=== PATIENT | male | born 1955 | race Caucasian/White ===

== ENCOUNTER 2018-12-06 19:30 | Inpatient (IN) | payer MEDICARE, OTHER ==
--- NOTE | 2018-12-06 19:46 | ED PDOC ---
Arrival/HPI - General Chief Complaint: Weakness/Neurological Deficit Time Seen by Provider: 12/06/18 19:37 Historian: Patient, Spouse - History of Present Illness Narrative History of Present Illness (Text): 12/06/18 19:58 63 year old male, with past medical history of CVA, hypertension, and cerebral hemorrhage s/p fall 06/08 presents to emergency department brought in by ambulance following apparent seizure episode according to . states that patient returned home and stated he wasn't feeling well. She reports patient was shaking, drooling,unresponsive.Following this patient was unable to move his left arm/leg, and had some slurred speech. Patient currently presents with left- sided paralysis and is able to speak slowly with difficulty answering questions. Time/Duration: Prior to Arrival Symptom Onset: Gradual Symptom Course: Unchanged Activities at Onset: Light Context: Home Past Medical History - Provider Review Nursing Documentation Reviewed: Yes - Infectious Disease Hx of Infectious Diseases: None - Cardiac Hx Cardiac Disorders: Yes Hx DC: Yes (x3) - Pulmonary Hx Respiratory Disorders: No - Neurological Hx Neurological Disorder: Yes HX Cerebrovascular Accident: Yes - HEENT Hx HEENT Disorder: No - Renal Hx Renal Disorder: No - Endocrine/Metabolic Hx Endocrine Disorders: No - Hematological/Oncological Hx Blood Disorders: No - Integumentary Hx Dermatological Disorder: No - Musculoskeletal/Rheumatological Hx Musculoskeletal Disorders: No - Gastrointestinal Hx Gastrointestinal Disorders: No - Genitourinary/Gynecological Hx Genitourinary Disorders: No - Psychiatric Hx Psychophysiologic Disorder: No Hx Substance Use: No - Surgical History Hx Cardiac Catheterization: Yes (stents) - Anesthesia Hx Anesthesia: Yes Hx Anesthesia Reactions: No Hx Malignant Hyperthermia: No Family/Social History - Physician Review Nursing Documentation Reviewed: Yes Family/Social History: Unknown Family HX Smoking Status: Never Smoked Hx Alcohol Use: No Hx Substance Use: No Allergies/Home Meds Allergies/Adverse Reactions: Allergies No Known Allergies Allergy (Verified 12/06/18 19:36) Home Medications: Home Meds Medication Instructions Recorded Confirmed Aspirin [Aspirin Chewable] 81 mg PO DAILY 12/06/18 12/06/18 Atorvastatin [Lipitor] 80 mg PO DAILY 12/06/18 12/06/18 Clopidogrel Bisulfate [Plavix] 75 mg PO DAILY 12/06/18 12/06/18 Lisinopril [Zestril] 2.5 mg PO DAILY 12/06/18 12/06/18 Review of Systems - Review of Systems Systems not reviewed;Unavailable: Acuity of Condition Physical Exam Vital Signs Reviewed: Yes Vital Signs Temp Pulse Resp BP Pulse Ox 12/06/18 19:37 93 H 16 133/68 96 12/06/18 19:30 98.4 F 88 17 133/68 98 Temperature: Afebrile Blood Pressure: Normal Pulse: Regular Respiratory Rate: Normal Appearance: Positive for: Well-Appearing, Non-Toxic, Comfortable Pain Distress: None Mental Status: Positive for: Alert and Oriented X 3, other (speaks slowly, difficulty answering questions) - Systems Exam Head: Present: Atraumatic, Normocephalic Pupils: Present: PERRL Extroacular Muscles: Present: EOMI Conjunctiva: Present: Normal Ears: Present: NORMAL TM Mouth: Present: Moist Mucous Membranes Pharnyx: Present: Normal Neck: Present: Normal Range of Motion. No: Meningeal Signs Respiratory/Chest: Present: Clear to Auscultation, Good Air Exchange. No: Respi ratory Distress, Accessory Muscle Use Cardiovascular: Present: Regular Rate and Rhythm, Normal S1, S2. No: Murmurs Abdomen: No: Tenderness, Distention, Peritoneal Signs Back: Present: Normal Inspection Upper Extremity: Present: Normal Inspection, NORMAL PULSES. No: Cyanosis, Edema Lower Extremity: Present: Normal Inspection, NORMAL PULSES. No: Edema Neurological: Present: Other (Mild left facial assymetry/left upper/left lower paralysis) Skin: Present: Warm, Dry, Normal Color. No: Rashes Medical Decision Making ED Course and Treatment: 12/06/18 19:52 Impression: 63 year old male presents to emergency department following seizure episode PRACTICE PHYSICIAN. Plan: -- Labs -- CT Head -- EKG -- Chest X-ray -- Keppra -- IV Fluids -- Reassess and disposition Prior Visits: Notes and results from previous visits were reviewed. Progress Notes: 12/06/18 20:17 Patient currently having recurrent seizure. 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 Case was discussed with Dr. Alegria. States patient is not a candidate for TPA given past medical history of prior CVA and cerebral bleed and symptoms c/w Byron's paralysis.He recommends patient be loaded with 1500 mg of keppra. Ativan had been ordered. 12/06/18 20:27 EKG: Ordered, reviewed, and independently interpreted the EKG. Rate : 85 BPM Rhythm : NSR Interpretation : Inferior infarct, no acute changes 12/06/18 20:32 Reviewed radiology, Chest X-ray shows no acute processes. CT Head: BRAIN: Chronic periventricular and subcortical microvascular disease is seen. Encephalomalacia involving old parietal lobe, compatible with an old infarct. No acute intracranial pathology. VENTRICLES: There is generalized parenchymal atrophy noted as demonstrated by symmetrical dilatation of ventricles and sulci. ORBITS: The orbits are unremarkable. SINUSES AND MASTOIDS: The paranasal sinuses and mastoid air cells are clear. BONES: No fracture. SOFT TISSUES: Unremarkable. IMPRESSION: 1. There is generalized parenchymal atrophy. 2. Chronic periventricular and subcortical microvascular disease is seen. 3. Encephalomalacia involving old parietal lobe, compatible with an old infarct. 4. No acute intracranial pathology. Electronically signed on December 06, 2018 7:57:04 PM EDT by: Aaron Jasso M.D., M.B.A., Certified By [employer] Trained MRI and CT Specialist 12/06/18 21:[address] Steele, who is aware and agrees with plan. Accepts pt in to her service. Requests ICU consult and Dr. Callahan on consult. Rent Collector paged. 12/06/18 22:[address] Chaney, merchandise team manager, present in ED to evaluate pt. Pt to be admitted to the ICU for new onset recurrent seizures and Todds paralysis under Dr. Steele's service. residential roofer notified. - Critical Care Critical Care Minutes: 30 minutes - Lab Interpretations I have reviewed the lab results: Yes - RAD Interpretation Radiology Orders: 12/06/18 19:37 HEAD W/O (CODE STROKE) [CT] Stat CHEST PORTABLE [RAD] Stat [employer]: ED Physician, Radiologist - EKG Interpretation Interpreted by ED Physician: Yes Type: 12 lead EKG - Medication Orders Current Medication Orders: Sodium Chloride (Sodium Chloride 0.9%) 1,000 mls @ 100 mls/hr IV .Q10H [facility] NIHSS Scale ([place]) Time Performed: 19:35 - How Severe is the Stoke Baseline Level of Consciousness: 0=Alert LOC to Questions: 0=Both comments correct LOC to commands: 0=Obeys both correctly Best Gaze: 0=Normal Visual: 0=No visual loss Facial: 1=Minor asymmetry Motor Arm - Left: 4=No movement Motor Arm - Right: 0=No drift Motor Leg - Left: 4=No movement Motor Leg - Right: 0=No drift Limb Ataxia: 0=Absent Sensory: 0=Normal Best Language: 0=No aphasia Dysarthia: 1=Mild to moderate slurring Extinction & Inattention (Neglect): 0=Normal, no object Score: 10 Risk Level: Mod Stroke Risk NIHSS Scale([place]) 2 Time Performed: 20:05 - How Severe is the Stoke Baseline Level of Consciousness: 0=Alert LOC to Questions: 0=Both comments correct LOC to commands: 0=Obeys both correctly Best Gaze: 0=Normal Visual: 0=No visual loss Facial: 0=Normal Motor Arm - Left: 4=No movement Motor Arm - Right: 0=No drift Motor Leg - Left: 4=No movement Motor Leg - Right: 0=No drift Limb Ataxia: 0=Absent Sensory: 0=Normal Best Language: 0=No aphasia Dysarthia: 0=Normal articulation Extinction & Inattention (Neglect): 0=Normal, no object Score: 8 Risk Level: Mod Stroke Risk rTPA Inclusion/Exclusion - Refusal of Treatment Patient Refused Treatment: No - Inclusion Criteria for Altepase All of the below criteria for inclusion were reviewed: Yes Patient is 18 years or Older: Yes The Clinical Diagnosis of Ischemic Stroke That is Causing a Potentially Disabling Neurological Deficit: No Time of Onset is Well Established to be Less Than 270 Minute Before Treatment Would Begin: Yes Risk/Benefit Discussed With Patient/Family Member Present: Yes - Exclusion Criteria for Altepase Current Intracranial Hemorrhage: No Subarachnoid hemorrhage: No Active Internal Bleeding: No Recent (within 3 months) Intracranial or Intraspinal Surgery: No Presence of intracranial conditions that may increase the risk of bleeding: Other (previous CVA/Cerebral Bleed) Current Severe Uncontrolled Hypertension: No - Warning to TPA With Conditions Following Conditions Weighed Against Anticipated Benefit: Yes Condition: Recent intracranial hemorrhage - Scribe Statement The provider has reviewed the documentation as recorded by the Scribe Vincent Jones All medical record entries made by the Scribe were at my direction and personally dictated by me. I have reviewed the chart and agree that the record accurately reflects my personal performance of the history, physical exam, medical decision making, and the department course for this patient. I have also personally directed, reviewed, and agree with the discharge instructions and disposition. Disposition/Present on Arrival - Present on Arrival Any Indicators Present on Arrival: No History of DVT/PE: No History of Uncontrolled Diabetes: No Urinary Catheter: No History of Decub. Ulcer: No History Surgical Site Infection Following: None - Disposition Have Diagnosis and Disposition been Completed?: Yes Diagnosis: New onset seizure, Recurrent seizures, Byron's paralysis (postepileptic) Disposition: HOSPITALIZED Disposition Time: 21:55 Patient Plan: ICU Condition: GUARDED
[2018-12-06] MEDS: Sodium Chloride 0.9% 1,000 ML IV SCH (19:56)
[2018-12-06 20:01] LABS: BASO # 0.04 K/mm3 (0.0-2.0); BASO % 0.7 % (0.0-3.0); EOS # 0.2 (0.0-0.7); EOS % 3.4 % (1.5-5.0); HEMOGLOBIN 14.6 g/dL (14.0-18.0); LYMPH # 4.1 (1.2-3.4); LYMPH % 68.2 % (22.0-35.0); MEAN CELL VOLUME 91.2 fl (80.0-105.0); MEAN CORPUSCULAR HEMOGLOBIN 29.1 pg (25.0-35.0); MEAN CORPUSCULAR HGB CONC 31.9 g/dl (31.0-37.0); MEAN PLATELET VOLUME 10.7 fl (7.0-11.0); MONO # 0.5 (0.1-0.6); MONO % 8.6 % (1.0-6.0); RBC 5.01 10^6/uL (3.5-6.1); RED CELL DISTRIBUTION WIDTH 13.6 % (11.5-14.5); WHITE BLOOD COUNT 5.9 10^3/uL (4.5-11.0)
[2018-12-06 20:07] LABS: INR 0.97; PARTIAL THROMBOPLASTIN TIME 26.4 Seconds (26.9-38.3); PROTHROMBIN TIME 10.8 SECONDS (9.4-12.5)
[2018-12-06 20:09] LABS: BLOOD UREA NITROGEN 21 mg/dL (7-21); CALCIUM 9.5 mg/dL (8.4-10.5); GFR NON-AFRICAN AMERICAN > 60; HDL CHOLESTEROL 51 mg/dL (29-60)
[2018-12-06 20:20] LABS: LDL CHOLESTEROL 111 mg/dL (0-129)
[2018-12-06] MEDS ORDERED: levETIRAcetam 1,500 MG in Sodium Chloride 0.9% 100 ML IVPB ONE (20:21)
[2018-12-06 20:25] LABS: ALB/GLOB RATIO 1.3 (1.1-1.8); ALT/SGPT 38 U/L (7-56); AST/SGOT 53 U/L (17-59); TROPONIN I < 0.01 ng/mL
[2018-12-07] MEDS: Sodium Chloride 0.9% 1,000 ML IV SCH ×2 (01:44→11:56)
[2018-12-07 03:32] VITALS: BMI 30.6
[2018-12-07] MEDS ORDERED: Pneumococcal 23-Valent Vaccine IM ONE (03:32)
--- NOTE | 2018-12-07 04:47 | CP.PCM.CON ---
<NathaliaYung - Last Filed: 12/07/18 04:37> History of Present Illness - History of Present Illness History of Present Illness: ICU consult note: Nathalia PGY - 2 Reason for consult: AMS, Byron's paralysis Consult requested by: Dr. Steele 63 M with pertinent medical history of CVA, HN, and cerebral hemorrhage s//p fall in 2018 preset[place] [facility] [place] 12[place] s/p seizure episode according to . Hx obtained from chart review because unavailable at time of interview and patient not verbally responsive. Apparently following this seizure like activity, patient was unable to move his left extremities; also had some slurred speech. Upon my interview, patient is moving extremities to pain but is otherwise too drowsy to respond to questions. Review of systems: 12 point ROS elicted but unobtained / patient's mental status Surgical Hx: Elicited but not obtained Medical Hx: Elicited but not obtained Allergies: Elicited but not obtained Social Hx: Elicited but not obtained Home Meds: Elicited but not obtained Family Hx: Elicited but not obtained Past Patient History - Infectious Disease Hx of Infectious Diseases: None - Past Social History Smoking Status: Never Smoked - CARDIAC Hx Cardiac Disorders: Yes - PULMONARY Hx Respiratory Disorders: No - NEUROLOGICAL Hx Neurological Disorder: Yes HX Cerebrovascular Accident: Yes (Cerebral Hemorrhage s/p fall.) - HEENT Hx HEENT Problems: No - RENAL Hx Chronic Kidney Disease: No - ENDOCRINE/METABOLIC Hx Endocrine Disorders: No - HEMATOLOGICAL/ONCOLOGICAL Hx Blood Disorders: No - INTEGUMENTARY Hx Dermatological Problems: No - MUSCULOSKELETAL/RHEUMATOLOGICAL Hx Falls: Yes - GASTROINTESTINAL Hx Gastrointestinal Disorders: No - GENITOURINARY/GYNECOLOGICAL Hx Genitourinary Disorders: No - PSYCHIATRIC Hx Substance Use: No (Denied by pt.) - SURGICAL HISTORY Hx Surgeries: No Hx Cardiac Catheterization: Yes (Cardiac Stents) - ANESTHESIA Hx Anesthesia: Yes Hx Anesthesia Reactions: No Hx Malignant Hyperthermia: No Meds Allergies/Adverse Reactions: Allergies Allergy/AdvReac Type Severity Reaction Status Date / Time No Known Allergies Allergy Verified 12/06/18 19:36 - Medications Medications: Current Medications Aspirin (Aspirin Chewable) 81 mg PO DAILY [facility] Atorvastatin Calcium (Lipitor) 80 mg PO DAILY [facility] Clopidogrel Bisulfate (Plavix) 75 mg PO DAILY [facility] Sodium Chloride (Sodium Chloride 0.9%) 1,000 mls @ 100 mls/hr IV .Q10H [facility] Last Admin: 12/07/18 01:44 Dose: 100 mls/hr Levetiracetam 750 mg/ Sodium (Chloride) 107.5 mls @ 215 mls/hr IVPB Q12 [facility] Lisinopril (Zestril) 2.5 mg PO DAILY [facility] Lorazepam (Ativan) 1 mg IVP Q6H PRN; Protocol PRN Reason: Seizure activity Physical Exam - Constitutional Appears: Well - Head Exam Head Exam: ATRAUMATIC, NORMAL INSPECTION, NORMOCEPHALIC - Eye Exam Eye Exam: EOMI, Normal appearance, PERRL Pupil Exam: NORMAL ACCOMODATION, PERRL - ENT Exam ENT Exam: Mucous Membranes Moist, Normal Exam - Neck Exam Neck exam: Positive for: Normal Inspection - Respiratory Exam Respiratory Exam: Clear to Auscultation Bilateral, NORMAL BREATHING PATTERN - Cardiovascular Exam Cardiovascular Exam: REGULAR RHYTHM - GI/Abdominal Exam GI & Abdominal Exam: Normal Bowel Sounds, Soft. absent: Tenderness - Extremities Exam Extremities exam: Positive for: normal inspection - Back Exam Back exam: NORMAL INSPECTION - Neurological Exam Neurological exam: Alert, CN II-XII Intact, Normal Gait, Oriented x3, Reflexes Normal - Psychiatric Exam Psychiatric exam: Normal Affect, Normal Mood - Skin Skin Exam: Dry, Intact, Normal Color, Warm Results - Vital Signs Recent Vital Signs: Last Vital Signs Temp 97.5 F L 12/07/18 00:47 Pulse 60 12/07/18 03:37 Resp 16 12/07/18 03:30 BP 96/67 L 12/07/18 03:01 Pulse Ox 98 12/07/18 03:30 - Labs Result Diagrams: 12/06/18 19:35 12/06/18 19:35 Labs: Laboratory Results - last 24 hr 12/06/18 12/06/18 12/06/18 19:35 19:35 19:35 WBC 5.9 RBC 5.01 Hgb 14.6 Hct 45.7 MCV 91.2 MCH 29.1 MCHC 31.9 RDW 13.6 Plt Count 276 MPV 10.7 Neut % (Auto) 19.1 L Lymph % (Auto) 68.2 H Woods % (Auto) 8.6 H Eos % (Auto) 3.4 Baso % (Auto) 0.7 Lymph # (Auto) 4.1 H Woods # (Auto) 0.5 Eos # (Auto) 0.2 Baso # (Auto) 0.04 Absolute Neuts (auto) 1.14 L PT 10.8 INR 0.97 APTT 26.4 L Sodium 139 Potassium 4.4 Chloride 103 Carbon Dioxide 11 L Anion Gap 30 H BUN 21 Creatinine 0.9 Est GFR ( Amer) > 60 Est GFR (Non-Af Amer) > 60 Random Glucose 112 H Calcium 9.5 Total Bilirubin 0.9 AST 53 ALT 38 Alkaline Phosphatase 57 Troponin I < 0.01 Total Protein 8.7 H Albumin 5.0 H Globulin 3.7 Albumin/Globulin Ratio 1.3 Triglycerides 244 H Cholesterol 200 LDL Cholesterol Direct 111 HDL Cholesterol 51 Blood Type Blood Type Confirm Antibody Screen BBK History Checked 12/06/18 12/06/18 19:41 21:09 WBC RBC Hgb Hct MCV MCH MCHC RDW Plt Count MPV Neut % (Auto) Lymph % (Auto) Woods % (Auto) Eos % (Auto) Baso % (Auto) Lymph # (Auto) Woods # (Auto) Eos # (Auto) Baso # (Auto) Absolute Neuts (auto) PT INR APTT Sodium Potassium Chloride Carbon Dioxide Anion Gap BUN Creatinine Est GFR ( Amer) Est GFR (Non-Af Amer) Random Glucose Calcium Total Bilirubin AST ALT Alkaline Phosphatase Troponin I Total Protein Albumin Globulin Albumin/Globulin Ratio Triglycerides Cholesterol LDL Cholesterol Direct HDL Cholesterol Blood Type A POSITIVE Blood Type Confirm A POSITIVE Antibody Screen Negative BBK History Checked No verified bt Assessment & Plan - Assessment and Plan (Free Text) Assessment: 63 M with pertinent medical hx of past cva, htn, and cerebral hemorrhage presenting with apparent new-onset seizures and byron's paralysis. Patient not a candidate for tPA as sx not in line with cva and patient has previous history of hemorrhage. Patient is currently not able o respond to questions and therefore does warrant ICU admission. Plan - Admit to MICU for observation - Neurochecks; Aspiration precautions; HOB >30 degrees - Vitals checks - Continuous EEG - Orders per Dr. Steele - Neuro consult: Dr. Callahan <Opal Chaney - Last Filed: 12/07/18 19:21> Meds - Medications Medications: Current Medications Aspirin (Aspirin Chewable) 81 mg PO DAILY [facility] Last Admin: 12/07/18 17:05 Dose: 81 mg Atorvastatin Calcium (Lipitor) 80 mg PO DAILY [facility] Last Admin: 12/07/18 17:05 Dose: 80 mg Clopidogrel Bisulfate (Plavix) 75 mg PO DAILY [facility] Last Admin: 12/07/18 17:05 Dose: 75 mg Escitalopram Oxalate (Lexapro) 10 mg PO HS [facility] Sodium Chloride (Sodium Chloride 0.9%) 1,000 mls @ 100 mls/hr IV .Q10H [facility] Last Admin: 12/07/18 11:56 Dose: 100 mls/hr Levetiracetam (Keppra 500mg Ivpb) 500 mg in 100 mls @ 240 mls/hr IVPB Q12 [facility] Lisinopril (Zestril) 2.5 mg PO DAILY [facility] Last Admin: 12/07/18 17:05 Dose: 2.5 mg Lorazepam (Ativan) 1 mg IVP Q6H PRN; Protocol PRN Reason: Seizure activity Last Admin: 12/07/18 17:02 Dose: 1 mg Pantoprazole Sodium (Protonix Ec Tab) 40 mg PO 0600 [facility] Results - Vital Signs Recent Vital Signs: Last Vital Signs Temp 97.9 F 12/07/18 16:00 Pulse 59 L 12/07/18 17:05 Resp 14 12/07/18 12:00 BP 131/75 12/07/18 17:05 Pulse Ox 97 12/07/18 12:00 - Labs Result Diagrams: 12/06/18 19:35 12/07/18 05:00 Labs: Laboratory Results - last 24 hr 12/06/18 12/06/18 12/06/18 19:35 19:35 19:35 WBC 5.9 RBC 5.01 Hgb 14.6 Hct 45.7 MCV 91.2 MCH 29.1 MCHC 31.9 RDW 13.6 Plt Count 276 MPV 10.7 Neut % (Auto) 19.1 L Lymph % (Auto) 68.2 H Woods % (Auto) 8.6 H Eos % (Auto) 3.4 Baso % (Auto) 0.7 Lymph # (Auto) 4.1 H Woods # (Auto) 0.5 Eos # (Auto) 0.2 Baso # (Auto) 0.04 Absolute Neuts (auto) 1.14 L PT 10.8 INR 0.97 APTT 26.4 L Sodium 139 Potassium 4.4 Chloride 103 Carbon Dioxide 11 L Anion Gap 30 H BUN 21 Creatinine 0.9 Est GFR ( Amer) > 60 Est GFR (Non-Af Amer) > 60 POC Glucose (mg/dL) Random Glucose 112 H Hemoglobin A1c Calcium 9.5 Total Bilirubin 0.9 AST 53 ALT 38 Alkaline Phosphatase 57 Troponin I < 0.01 Total Protein 8.7 H Albumin 5.0 H Globulin 3.7 Albumin/Globulin Ratio 1.3 Triglycerides 244 H Cholesterol 200 LDL Cholesterol Direct 111 HDL Cholesterol 51 Free T4 TSH 3rd Generation Blood Type Blood Type Confirm Antibody Screen BBK History Checked 12/06/18 12/06/18 12/06/18 19:35 19:41 21:09 WBC RBC Hgb Hct MCV MCH MCHC RDW Plt Count MPV Neut % (Auto) Lymph % (Auto) Woods % (Auto) Eos % (Auto) Baso % (Auto) Lymph # (Auto) Woods # (Auto) Eos # (Auto) Baso # (Auto) Absolute Neuts (auto) PT INR APTT Sodium Potassium Chloride Carbon Dioxide Anion Gap BUN Creatinine Est GFR ( Amer) Est GFR (Non-Af Amer) POC Glucose (mg/dL) Random Glucose Hemoglobin A1c 5.9 Calcium Total Bilirubin AST ALT Alkaline Phosphatase Troponin I Total Protein Albumin Globulin Albumin/Globulin Ratio Triglycerides Cholesterol LDL Cholesterol Direct HDL Cholesterol Free T4 TSH 3rd Generation Blood Type A POSITIVE Blood Type Confirm A POSITIVE Antibody Screen Negative BBK History Checked No verified bt 12/07/18 12/07/18 12/07/18 05:00 05:00 05:00 WBC RBC Hgb Hct MCV MCH MCHC RDW Plt Count MPV Neut % (Auto) Lymph % (Auto) Woods % (Auto) Eos % (Auto) Baso % (Auto) Lymph # (Auto) Woods # (Auto) Eos # (Auto) Baso # (Auto) Absolute Neuts (auto) PT INR APTT Sodium 139 Potassium 4.0 Chloride 106 Carbon Dioxide 23 Anion Gap 14 BUN 19 Creatinine 0.7 L Est GFR ( Amer) > 60 Est GFR (Non-Af Amer) > 60 POC Glucose (mg/dL) Random Glucose 101 Hemoglobin A1c 5.9 Calcium 8.6 Total Bilirubin 0.6 AST 50 ALT 38 Alkaline Phosphatase 58 Troponin I Total Protein 6.8 Albumin 3.8 Globulin 3.0 Albumin/Globulin Ratio 1.3 Triglycerides 72 Cholesterol 163 LDL Cholesterol Direct 98 HDL Cholesterol 45 Free T4 1.24 TSH 3rd Generation 0.25 L Blood Type Blood Type Confirm Antibody Screen BBK History Checked 12/07/18 12/07/18 11:50 18:01 WBC RBC Hgb Hct MCV MCH MCHC RDW Plt Count MPV Neut % (Auto) Lymph % (Auto) Woods % (Auto) Eos % (Auto) Baso % (Auto) Lymph # (Auto) Woods # (Auto) Eos # (Auto) Baso # (Auto) Absolute Neuts (auto) PT INR APTT Sodium Potassium Chloride Carbon Dioxide Anion Gap BUN Creatinine Est GFR ( Amer) Est GFR (Non-Af Amer) POC Glucose (mg/dL) 94 101 Random Glucose Hemoglobin A1c Calcium Total Bilirubin AST ALT Alkaline Phosphatase Troponin I Total Protein Albumin Globulin Albumin/Globulin Ratio Triglycerides Cholesterol LDL Cholesterol Direct HDL Cholesterol Free T4 TSH 3rd Generation Blood Type Blood Type Confirm Antibody Screen BBK History Checked Attending/Attestation - Attestation I have personally seen and examined this patient.: Yes I have fully participated in the care of the patient.: Yes I have reviewed all pertinent clinical information: Yes Notes (Text): 12/07/18 19:20 seen and examined. Discussed with resident. A&P as above.
[2018-12-07 05:58] LABS: LDL CHOLESTEROL 98 mg/dL (0-129)
[2018-12-07 06:02] LABS: FREE T4 1.24 ng/dL (0.78-2.19)
[2018-12-07 06:11] LABS: ALB/GLOB RATIO 1.3 (1.1-1.8); ALBUMIN 3.8 g/dL (3.0-4.8); ALT/SGPT 38 U/L (7-56); AST/SGOT 50 U/L (17-59); BLOOD UREA NITROGEN 19 mg/dL (7-21); CALCIUM 8.6 mg/dL (8.4-10.5); GFR NON-AFRICAN AMERICAN > 60; HDL CHOLESTEROL 45 mg/dL (29-60)
--- NOTE | 2018-12-07 08:33 | CT ---
Date of service: 12/06/2018 PROCEDURE: CT HEAD WITHOUT CONTRAST. HISTORY: Code Stroke COMPARISON: None available. TECHNIQUE: Axial computed tomography images were obtained through the head/brain without intravenous contrast. Radiation dose: Total exam DLP = 1927.82 mGy-cm. This CT exam was performed using one or more of the following dose reduction techniques: Automated exposure control, adjustment of the mA and/or kV according to patient size, and/or use of iterative reconstruction technique. FINDINGS: HEMORRHAGE: No intracranial hemorrhage. BRAIN: No mass effect or edema. Severe chronic encephalomalacia in the right parietal lobe. Chronic microvascular changes in the periventricular white matter. Mild atrophy. VENTRICLES: Unremarkable. No hydrocephalus. CALVARIUM: Unremarkable. PARANASAL SINUSES: Unremarkable as visualized. No significant inflammatory changes. MASTOID AIR CELLS: Unremarkable as visualized. No inflammatory changes. OTHER FINDINGS: The report concurs with the preliminary [facility] report IMPRESSION: No acute intracranial finding
--- NOTE | 2018-12-07 09:40 | CP.PCM.CON ---
History of Present Illness - History of Present Illness History of Present Illness: Neurology Consultation Note: Consult requested by Dr. Steele Mr. Vaughn is a 63-year-old man with a past medical history of previous right parietal lobe stroke who was witnessed having a generalized tonic-clonic seizure at home, and subsequently had left side weakness, brought to the ED, where he had another seizure, given Ativan and loaded with Keppra. Review of Systems - Review of Systems Systems not reviewed;Unavailable: Altered Mental Status Past Patient History - Infectious Disease Hx of Infectious Diseases: None - Past Social History Smoking Status: Never Smoked - CARDIAC Hx Cardiac Disorders: Yes - PULMONARY Hx Respiratory Disorders: No - NEUROLOGICAL Hx Neurological Disorder: Yes HX Cerebrovascular Accident: Yes (Cerebral Hemorrhage s/p fall.) - HEENT Hx HEENT Problems: No - RENAL Hx Chronic Kidney Disease: No - ENDOCRINE/METABOLIC Hx Endocrine Disorders: No - HEMATOLOGICAL/ONCOLOGICAL Hx Blood Disorders: No - INTEGUMENTARY Hx Dermatological Problems: No - MUSCULOSKELETAL/RHEUMATOLOGICAL Hx Falls: Yes - GASTROINTESTINAL Hx Gastrointestinal Disorders: No - GENITOURINARY/GYNECOLOGICAL Hx Genitourinary Disorders: No - PSYCHIATRIC Hx Substance Use: No (Denied by pt.) - SURGICAL HISTORY Hx Surgeries: No Hx Cardiac Catheterization: Yes (Cardiac Stents) - ANESTHESIA Hx Anesthesia: Yes Hx Anesthesia Reactions: No Hx Malignant Hyperthermia: No Meds Allergies/Adverse Reactions: Allergies Allergy/AdvReac Type Severity Reaction Status Date / Time No Known Allergies Allergy Verified 12/06/18 19:36 - Medications Medications: Current Medications Aspirin (Aspirin Chewable) 81 mg PO DAILY [facility] Last Admin: 12/07/18 09:25 Dose: Not Given Atorvastatin Calcium (Lipitor) 80 mg PO DAILY [facility] Last Admin: 12/07/18 09:25 Dose: Not Given Clopidogrel Bisulfate (Plavix) 75 mg PO DAILY [facility] Last Admin: 12/07/18 09:25 Dose: Not Given Sodium Chloride (Sodium Chloride 0.9%) 1,000 mls @ 100 mls/hr IV .Q10H [facility] Last Admin: 12/07/18 01:44 Dose: 100 mls/hr Levetiracetam 750 mg/ Sodium (Chloride) 107.5 mls @ 215 mls/hr IVPB Q12 [facility] Last Admin: 12/07/18 09:28 Dose: 215 mls/hr Lisinopril (Zestril) 2.5 mg PO DAILY [facility] Last Admin: 12/07/18 09:26 Dose: Not Given Lorazepam (Ativan) 1 mg IVP Q6H PRN; Protocol PRN Reason: Seizure activity Physical Exam - Constitutional Appears: Well - Head Exam Head Exam: ATRAUMATIC, NORMAL INSPECTION, NORMOCEPHALIC - Eye Exam Eye Exam: EOMI, Normal appearance, PERRL Pupil Exam: NORMAL ACCOMODATION, PERRL - ENT Exam ENT Exam: Mucous Membranes Moist, Normal Exam - Neck Exam Neck exam: Positive for: Normal Inspection - Respiratory Exam Respiratory Exam: Clear to Auscultation Bilateral, NORMAL BREATHING PATTERN - Cardiovascular Exam Cardiovascular Exam: REGULAR RHYTHM, +S1, +S2 - GI/Abdominal Exam GI & Abdominal Exam: absent: Tenderness - Extremities Exam Extremities exam: Positive for: normal inspection - Back Exam Back exam: NORMAL INSPECTION - Neurological Exam Neurological exam: Alert, CN II-XII Intact, Reflexes Normal - Psychiatric Exam Psychiatric exam: Normal Affect, Normal Mood - Skin Skin Exam: Dry, Intact, Normal Color, Warm Results - Vital Signs Recent Vital Signs: Last Vital Signs Temp 97.5 F L 12/07/18 08:00 Pulse 55 L 12/07/18 09:01 Resp 16 12/07/18 09:01 BP 146/68 12/07/18 09:01 Pulse Ox 98 12/07/18 09:01 - Labs Result Diagrams: 12/06/18 19:35 12/07/18 05:00 Labs: Laboratory Results - last 24 hr 12/06/18 12/06/18 12/06/18 19:35 19:35 19:35 WBC 5.9 RBC 5.01 Hgb 14.6 Hct 45.7 MCV 91.2 MCH 29.1 MCHC 31.9 RDW 13.6 Plt Count 276 MPV 10.7 Neut % (Auto) 19.1 L Lymph % (Auto) 68.2 H Bleck[place] % (Auto) 8.6 H Eos % (Auto) 3.4 Baso % (Auto) 0.7 Lymph # (Auto) 4.1 H Bleck[place] # (Auto) 0.5 Eos # (Auto) 0.2 Baso # (Auto) 0.04 Absolute Neuts (auto) 1.14 L PT 10.8 INR 0.97 APTT 26.4 L Sodium 139 Potassium 4.4 Chloride 103 Carbon Dioxide 11 L Anion Gap 30 H BUN 21 Creatinine 0.9 Est GFR ( Amer) > 60 Est GFR (Non-Af Amer) > 60 Random Glucose 112 H Calcium 9.5 Total Bilirubin 0.9 AST 53 ALT 38 Alkaline Phosphatase 57 Troponin I < 0.01 Total Protein 8.7 H Albumin 5.0 H Globulin 3.7 Albumin/Globulin Ratio 1.3 Triglycerides 244 H Cholesterol 200 LDL Cholesterol Direct 111 HDL Cholesterol 51 Free T4 TSH 3rd Generation Blood Type Blood Type Confirm Antibody Screen BBK History Checked 12/06/18 12/06/18 12/07/18 19:41 21:09 05:00 WBC RBC Hgb Hct MCV MCH MCHC RDW Plt Count MPV Neut % (Auto) Lymph % (Auto) Bleck[place] % (Auto) Eos % (Auto) Baso % (Auto) Lymph # (Auto) [place] # (Auto) Eos # (Auto) Baso # (Auto) Absolute Neuts (auto) PT INR APTT Sodium 139 Potassium 4.0 Chloride 106 Carbon Dioxide 23 Anion Gap 14 BUN 19 Creatinine 0.7 L Est GFR ( Amer) > 60 Est GFR (Non-Af Amer) > 60 Random Glucose 101 Calcium 8.6 Total Bilirubin 0.6 AST 50 ALT 38 Alkaline Phosphatase 58 Troponin I Total Protein 6.8 Albumin 3.8 Globulin 3.0 Albumin/Globulin Ratio 1.3 Triglycerides 72 Cholesterol 163 LDL Cholesterol Direct 98 HDL Cholesterol 45 Free T4 TSH 3rd Generation Blood Type A POSITIVE Blood Type Confirm A POSITIVE Antibody Screen Negative BBK History Checked No verified bt 12/07/18 05:00 WBC RBC Hgb Hct MCV MCH MCHC RDW Plt Count MPV Neut % (Auto) Lymph % (Auto) [place] % (Auto) Eos % (Auto) Baso % (Auto) Lymph # (Auto) [place] # (Auto) Eos # (Auto) Baso # (Auto) Absolute Neuts (auto) PT INR APTT Sodium Potassium Chloride Carbon Dioxide Anion Gap BUN Creatinine Est GFR ( Amer) Est GFR (Non-Af Amer) Random Glucose Calcium Total Bilirubin AST ALT Alkaline Phosphatase Troponin I Total Protein Albumin Globulin Albumin/Globulin Ratio Triglycerides Cholesterol LDL Cholesterol Direct HDL Cholesterol Free T4 1.24 TSH 3rd Generation 0.25 L Blood Type Blood Type Confirm Antibody Screen BBK History Checked Assessment & Plan (1) Seizure Assessment and Plan: Will continue Keppra 500 mg BID for seizure prophylaxis. Obtain MRI of the brain without contrast for further evaluation. Status: Acute (2) Byron's paralysis (postepileptic) Assessment and Plan: PT/OT and supportive care. MRI will determine if there is a new infarct. Currently, the patient is able to move his left side as usual. His paralysis has basically resolved. Thank you for this consultation. Status: Acute
--- NOTE | 2018-12-07 09:58 | RAD ---
Date of service: 12/06/2018 HISTORY: Code Stroke COMPARISON: No prior. TECHNIQUE: 1 view obtained. FINDINGS: LUNGS: No active pulmonary disease. PLEURA: No significant pleural effusion identified, no pneumothorax apparent. CARDIOVASCULAR: No aortic atherosclerotic calcification present. Normal cardiac size. No pulmonary vascular congestion. OSSEOUS STRUCTURES: No significant abnormalities. VISUALIZED UPPER ABDOMEN: Normal. OTHER FINDINGS: None. IMPRESSION: No active disease.
--- NOTE | 2018-12-07 11:59 | CP.CCUPN ---
<Dayron Biswas - Last Filed: 12/07/18 11:52> CCU Subjective - Physician Review Subjective (Free Text): Dayron Biswas PGY-1 Critical Care Progress Note Patient seen and evaluated at bedside. No acute events reported overnight. Patient currently with video EEG in progress. Reports lethargy but denies chest pain, palpitations, shortness of breath, headaches, blurry vision. CCU Objective - Vital Signs / Intake & Output Vital Signs (Last 4 hours): Vital Signs Temp Pulse Resp BP Pulse Ox 12/07/18 09:01 55 L 16 146/68 98 12/07/18 09:00 57 L 17 98 12/07/18 08:00 97.5 F L 56 L 13 96/50 L 98 Intake and Output (Last 8hrs): Intake & Output 12/06/18 12/07/18 12/07/18 22:59 06:59 14:59 Intake Total 525 Output Total 200 Balance 325 Weight 76.34 kg 78.381 kg Intake: IV 525 Right Antecubital 0 Right Forearm 525 Oral 0 Tube Feeding 0 TPN/PPN 0 Blood Product 0 Lipid 0 Albumin 0 Other 0 Output: Urine 200 Urine, Voided 200 Stool 0 Urine/Stool Mix 0 Emesis 0 Oral Regurgitation 0 Other 0 Other: Voiding Method Urinal # Voids Urine, Voided 0 # Bowel Movements 0 - Physical Exam Head: Positive for: Atraumatic, Normocephalic Pupils: Positive for: PERRL Extroacular Muscles: Positive for: EOMI Conjunctiva: Positive for: Normal Mouth: Positive for: Moist Mucous Membranes, Normal Tounge (Previous bite nolan noted) Pharnyx: Positive for: Normal Neck: Positive for: Normal Range of Motion. Negative for: Meningeal Signs Respiratory/Chest: Positive for: Clear to Auscultation, Good Air Exchange. Negative for: Respiratory Distress, Accessory Muscle Use Cardiovascular: Positive for: Regular Rate and Rhythm, Normal S1, S2. Negative for: Murmurs Abdomen: Negative for: Tenderness, Distention, Peritoneal Signs Back: Positive for: Normal Inspection Upper Extremity: Positive for: Normal Inspection, NORMAL PULSES. Negative for: Cyanosis, Edema Lower Extremity: Positive for: Normal Inspection, NORMAL PULSES. Negative for: Edema Neurological: Positive for: GCS=15, CN II-XII Intact, Speech Normal, Other (Full ROM b/l with no obvious residual motor deficits) Skin: Positive for: Warm, Dry, Normal Color. Negative for: Rashes Psychiatric: Positive for: Alert, Oriented x 3, Normal Insight, Normal Concentration - Medications Active Medications: Active Medications Generic Name Dose Route Start Last Admin Trade Name Freq PRN Reason Stop Dose Admin Aspirin 81 mg 12/07/18 10:00 12/07/18 09:25 Aspirin Chewable PO Not Given DAILY [facility] Atorvastatin Calcium 80 mg 12/07/18 10:00 12/07/18 09:25 Lipitor PO Not Given DAILY [facility] Clopidogrel Bisulfate 75 mg 12/07/18 10:00 12/07/18 09:25 Plavix PO Not Given DAILY [facility] Sodium Chloride 1,000 mls @ 100 mls/hr 12/06/18 19:45 12/07/18 01:44 Sodium Chloride 0.9% IV 100 mls/hr .Q10H [facility] Administration Levetiracetam 750 mg/ Sodium 107.5 mls @ 215 mls/hr 12/07/18 10:00 12/07/18 09:28 Chloride IVPB 215 mls/hr Q12 [facility] Administration Lisinopril 2.5 mg 12/07/18 10:00 12/07/18 09:26 Zestril PO Not Given DAILY [facility] Lorazepam 1 mg 12/06/18 22:09 Ativan IVP Q6H PRN Seizure activity Protocol - Patient Studies Lab Studies: Lab Studies 12/07/18 12/07/18 12/07/18 Range/Units 05:00 05:00 05:00 WBC (4.5-11.0) 10^3/uL RBC (3.5-6.1) 10^6/uL Hgb (14.0-18.0) g/dL Hct (42.0-52.0) % MCV (80.0-105.0) fl MCH (25.0-35.0) pg MCHC (31.0-37.0) g/dl RDW (11.5-14.5) % Plt Count (120.0-450.0) 10^3/uL MPV (7.0-11.0) fl Neut % (Auto) (50.0-68.0) % Lymph % (Auto) (22.0-35.0) % [place] % (Auto) (1.0-6.0) % Eos % (Auto) (1.5-5.0) % Baso % (Auto) (0.0-3.0) % Lymph # (Auto) (1.2-3.4) [place] # (Auto) (0.1-0.6) Eos # (Auto) (0.0-0.7) Baso # (Auto) (0.0-2.0) K/mm3 Absolute Neuts (auto) (1.4-6.5) PT (9.4-12.5) SECONDS INR APTT (26.9-38.3) Seconds Sodium 139 (132-148) mmol/L Potassium 4.0 (3.6-5.0) mmol/L Chloride 106 (98-107) mmol/L Carbon Dioxide 23 (21-33) mmol/L Anion Gap 14 (10-20) BUN 19 (7-21) mg/dL Creatinine 0.7 L (0.8-1.5) mg/dl Est GFR ( Amer) > 60 Est GFR (Non-Af Amer) > 60 Random Glucose 101 (70-110) mg/dL Hemoglobin A1c 5.9 (4.2-6.5) % Calcium 8.6 (8.4-10.5) mg/dL Total Bilirubin 0.6 (0.2-1.3) mg/dL AST 50 (17-59) U/L ALT 38 (7-56) U/L Alkaline Phosphatase 58 (38-126) U/L Troponin I ng/mL Total Protein 6.8 (5.8-8.3) g/dL Albumin 3.8 (3.0-4.8) g/dL Globulin 3.0 gm/dL Albumin/Globulin Ratio 1.3 (1.1-1.8) Triglycerides 72 (35-160) mg/dL Cholesterol 163 (130-200) mg/dL LDL Cholesterol Direct 98 (0-129) mg/dL HDL Cholesterol 45 (29-60) mg/dL Free T4 1.24 (0.78-2.19) ng/dL TSH 3rd Generation 0.25 L (0.46-4.68) mIU/mL Blood Type Blood Type Confirm Antibody Screen BBK History Checked 12/06/18 12/06/18 12/06/18 Range/Units 21:09 19:41 19:35 WBC (4.5-11.0) 10^3/uL RBC (3.5-6.1) 10^6/uL Hgb (14.0-18.0) g/dL Hct (42.0-52.0) % MCV (80.0-105.0) fl MCH (25.0-35.0) pg MCHC (31.0-37.0) g/dl RDW (11.5-14.5) % Plt Count (120.0-450.0) 10^3/uL MPV (7.0-11.0) fl Neut % (Auto) (50.0-68.0) % Lymph % (Auto) (22.0-35.0) % [place] % (Auto) (1.0-6.0) % Eos % (Auto) (1.5-5.0) % Baso % (Auto) (0.0-3.0) % Lymph # (Auto) (1.2-3.4) [place] # (Auto) (0.1-0.6) Eos # (Auto) (0.0-0.7) Baso # (Auto) (0.0-2.0) K/mm3 Absolute Neuts (auto) (1.4-6.5) PT (9.4-12.5) SECONDS INR APTT (26.9-38.3) Seconds Sodium (132-148) mmol/L Potassium (3.6-5.0) mmol/L Chloride (98-107) mmol/L Carbon Dioxide (21-33) mmol/L Anion Gap (10-20) BUN (7-21) mg/dL Creatinine (0.8-1.5) mg/dl Est GFR ( Amer) Est GFR (Non-Af Amer) Random Glucose (70-110) mg/dL Hemoglobin A1c 5.9 (4.2-6.5) % Calcium (8.4-10.5) mg/dL Total Bilirubin (0.2-1.3) mg/dL AST (17-59) U/L ALT (7-56) U/L Alkaline Phosphatase (38-126) U/L Troponin I ng/mL Total Protein (5.8-8.3) g/dL Albumin (3.0-4.8) g/dL Globulin gm/dL Albumin/Globulin Ratio (1.1-1.8) Triglycerides (35-160) mg/dL Cholesterol (130-200) mg/dL LDL Cholesterol Direct (0-129) mg/dL HDL Cholesterol (29-60) mg/dL Free T4 (0.78-2.19) ng/dL TSH 3rd Generation (0.46-4.68) mIU/mL Blood Type A POSITIVE Blood Type Confirm A POSITIVE Antibody Screen Negative BBK History Checked No verified bt 12/06/18 12/06/18 12/06/18 Range/Units 19:35 19:35 19:35 WBC 5.9 (4.5-11.0) 10^3/uL RBC 5.01 (3.5-6.1) 10^6/uL Hgb 14.6 (14.0-18.0) g/dL Hct 45.7 (42.0-52.0) % MCV 91.2 (80.0-105.0) fl MCH 29.1 (25.0-35.0) pg MCHC 31.9 (31.0-37.0) g/dl RDW 13.6 (11.5-14.5) % Plt Count 276 (120.0-450.0) 10^3/uL MPV 10.7 (7.0-11.0) fl Neut % (Auto) 19.1 L (50.0-68.0) % Lymph % (Auto) 68.2 H (22.0-35.0) % [place] % (Auto) 8.6 H (1.0-6.0) % Eos % (Auto) 3.4 (1.5-5.0) % Baso % (Auto) 0.7 (0.0-3.0) % Lymph # (Auto) 4.1 H (1.2-3.4) [place] # (Auto) 0.5 (0.1-0.6) Eos # (Auto) 0.2 (0.0-0.7) Baso # (Auto) 0.04 (0.0-2.0) K/mm3 Absolute Neuts (auto) 1.14 L (1.4-6.5) PT 10.8 (9.4-12.5) SECONDS INR 0.97 APTT 26.4 L (26.9-38.3) Seconds Sodium 139 (132-148) mmol/L Potassium 4.4 (3.6-5.0) mmol/L Chloride 103 (98-107) mmol/L Carbon Dioxide 11 L (21-33) mmol/L Anion Gap 30 H (10-20) BUN 21 (7-21) mg/dL Creatinine 0.9 (0.8-1.5) mg/dl Est GFR ( Amer) > 60 Est GFR (Non-Af Amer) > 60 Random Glucose 112 H (70-110) mg/dL Hemoglobin A1c (4.2-6.5) % Calcium 9.5 (8.4-10.5) mg/dL Total Bilirubin 0.9 (0.2-1.3) mg/dL AST 53 (17-59) U/L ALT 38 (7-56) U/L Alkaline Phosphatase 57 (38-126) U/L Troponin I < 0.01 ng/mL Total Protein 8.7 H (5.8-8.3) g/dL Albumin 5.0 H (3.0-4.8) g/dL Globulin 3.7 gm/dL Albumin/Globulin Ratio 1.3 (1.1-1.8) Triglycerides 244 H (35-160) mg/dL Cholesterol 200 (130-200) mg/dL LDL Cholesterol Direct 111 (0-129) mg/dL HDL Cholesterol 51 (29-60) mg/dL Free T4 (0.78-2.19) ng/dL TSH 3rd Generation (0.46-4.68) mIU/mL Blood Type Blood Type Confirm Antibody Screen BBK History Checked Laboratory Results - last 24 hr 12/06/18 12/06/18 12/06/18 19:35 19:35 19:35 WBC 5.9 RBC 5.01 Hgb 14.6 Hct 45.7 MCV 91.2 MCH 29.1 MCHC 31.9 RDW 13.6 Plt Count 276 MPV 10.7 Neut % (Auto) 19.1 L Lymph % (Auto) 68.2 H [place] % (Auto) 8.6 H Eos % (Auto) 3.4 Baso % (Auto) 0.7 Lymph # (Auto) 4.1 H [place] # (Auto) 0.5 Eos # (Auto) 0.2 Baso # (Auto) 0.04 Absolute Neuts (auto) 1.14 L PT 10.8 INR 0.97 APTT 26.4 L Sodium 139 Potassium 4.4 Chloride 103 Carbon Dioxide 11 L Anion Gap 30 H BUN 21 Creatinine 0.9 Est GFR ( Amer) > 60 Est GFR (Non-Af Amer) > 60 Random Glucose 112 H Hemoglobin A1c Calcium 9.5 Total Bilirubin 0.9 AST 53 ALT 38 Alkaline Phosphatase 57 Troponin I < 0.01 Total Protein 8.7 H Albumin 5.0 H Globulin 3.7 Albumin/Globulin Ratio 1.3 Triglycerides 244 H Cholesterol 200 LDL Cholesterol Direct 111 HDL Cholesterol 51 Free T4 TSH 3rd Generation Blood Type Blood Type Confirm Antibody Screen BBK History Checked 12/06/18 12/06/18 12/06/18 19:35 19:41 21:09 WBC RBC Hgb Hct MCV MCH MCHC RDW Plt Count MPV Neut % (Auto) Lymph % (Auto) [place] % (Auto) Eos % (Auto) Baso % (Auto) Lymph # (Auto) [place] # (Auto) Eos # (Auto) Baso # (Auto) Absolute Neuts (auto) PT INR APTT Sodium Potassium Chloride Carbon Dioxide Anion Gap BUN Creatinine Est GFR ( Amer) Est GFR (Non-Af Amer) Random Glucose Hemoglobin A1c 5.9 Calcium Total Bilirubin AST ALT Alkaline Phosphatase Troponin I Total Protein Albumin Globulin Albumin/Globulin Ratio Triglycerides Cholesterol LDL Cholesterol Direct HDL Cholesterol Free T4 TSH 3rd Generation Blood Type A POSITIVE Blood Type Confirm A POSITIVE Antibody Screen Negative BBK History Checked No verified bt 12/07/18 12/07/18 12/07/18 05:00 05:00 05:00 WBC RBC Hgb Hct MCV MCH MCHC RDW Plt Count MPV Neut % (Auto) Lymph % (Auto) [place] % (Auto) Eos % (Auto) Baso % (Auto) Lymph # (Auto) [place] # (Auto) Eos # (Auto) Baso # (Auto) Absolute Neuts (auto) PT INR APTT Sodium 139 Potassium 4.0 Chloride 106 Carbon Dioxide 23 Anion Gap 14 BUN 19 Creatinine 0.7 L Est GFR ( Amer) > 60 Est GFR (Non-Af Amer) > 60 Random Glucose 101 Hemoglobin A1c 5.9 Calcium 8.6 Total Bilirubin 0.6 AST 50 ALT 38 Alkaline Phosphatase 58 Troponin I Total Protein 6.8 Albumin 3.8 Globulin 3.0 Albumin/Globulin Ratio 1.3 Triglycerides 72 Cholesterol 163 LDL Cholesterol Direct 98 HDL Cholesterol 45 Free T4 1.24 TSH 3rd Generation 0.25 L Blood Type Blood Type Confirm Antibody Screen BBK History Checked Radiology Impressions: Radiology Impressions Chest X-Ray 12/06/18 19:37 IMPRESSION: No active disease. Head CT 12/06/18 19:37 IMPRESSION: No acute intracranial finding EKG/Cardiology Studies: Cardiology / EKG Studies 12/06/18 19:37 ELECTROCARDIOGRAM Stat Comment: Reason For Exam: cva Fingerstick Blood Sugar Results: 101 Review of Systems - Review of Systems Review of Systems: 12 point ROS completed and negative except as described in HPI. Critical Care Progress Note - Nutrition Nutrition: Nutrition Category Date Time Status NPO Diet [DIET] Diets 12/07/18 Breakfast Ordered Assessment/Plan - Assessment and Plan (Free Text) Assessment: Mr. Vaughn is a 63 M with pertinent medical hx of past CVA, HTN, CAD with multiple stents and cerebral hemorrhage in 06/08 presented with repeat seizures. Family reports [place] [facility] [place] Patient is currently hem odynamically stable, in no respiratory or cardiovascular distress, speaking without motor deficits. Neuro: -S/p Keppra loading dose -Video EEG to be disconnected, f/u report -AAOx3, no FND at this time, moving extremities past midline. -Decrease Keppra to 500 mg BID -F/U MRI brain without contrast to r/o new infarct -F/U carotid U/S -Monitor neuro status. Fall and seizure precautions -Reorient patient as necessary. -Neuro on consult - Dr. Callahan Cardio: -RRR, normotensive, no signs of HD compromise -Maintain MAP>65. -Monitor for S/S, HD compromise. Pulm: -No signs of respiratory distress. CTA B/L -Maintain O2 saturation>90%. -O2 NC PRN -aspiration precautions -CXR: -Elevate bed to 30 degrees GI: -Pending swallow eval -Protonix /Nephro: -BUN/Cr stable -Continue monitoring. -Replete electrolytes as needed. -Maintain euvolemia. Endocrinology: -Random glucose: 101 -Maintain euglycemia. Heme/Onc: -H/H stable -No signs of HD compromise. -Continue monitoring H/H ID: -Afebrile, no leukocytosis -Monitor for signs and symptoms of infection. DVT ppx: SCDs Patient seen, case reviewed and plan approved by Dr. Zahra Mitchell. Dayron Biswas, PGY-1 <Jayleen Mitchell - Last Filed: 12/07/18 16:21> CCU Objective - Vital Signs / Intake & Output Vital Signs (Last 4 hours): Vital Signs Pulse 12/07/18 15:29 70 Intake and Output (Last 8hrs): Intake & Output 12/07/18 12/07/18 12/07/18 06:59 14:59 22:59 Intake Total 525 Output Total 200 Balance 325 Weight 78.381 kg Intake: IV 525 Right Antecubital 0 Right Forearm 525 Oral 0 Tube Feeding 0 TPN/PPN 0 Blood Product 0 Lipid 0 Albumin 0 Other 0 Output: Urine 200 Urine, Voided 200 Stool 0 Urine/Stool Mix 0 Emesis 0 Oral Regurgitation 0 Other 0 Other: Voiding Method Urinal # Voids Urine, Voided 0 # Bowel Movements 0 - Medications Active Medications: Active Medications Generic Name Dose Route Start Last Admin Trade Name Freq PRN Reason Stop Dose Admin Aspirin 81 mg 12/07/18 10:00 12/07/18 09:25 Aspirin Chewable PO Not Given DAILY [facility] Atorvastatin Calcium 80 mg 12/07/18 10:00 12/07/18 09:25 Lipitor PO Not Given DAILY [facility] Clopidogrel Bisulfate 75 mg 12/07/18 10:00 12/07/18 09:25 Plavix PO Not Given DAILY [facility] Sodium Chloride 1,000 mls @ 100 mls/hr 12/06/18 19:45 12/07/18 11:56 Sodium Chloride 0.9% IV 100 mls/hr .Q10H [facility] Administration Levetiracetam 500 mg in 100 mls @ 240 mls/hr 12/07/18 11:52 Keppra 500mg Ivpb IVPB Q12 [facility] Lisinopril 2.5 mg 12/07/18 10:00 12/07/18 09:26 Zestril PO Not Given DAILY [facility] Lorazepam 1 mg 12/06/18 22:09 Ativan IVP Q6H PRN Seizure activity Protocol - Patient Studies Lab Studies: Lab Studies 12/07/18 12/07/18 12/07/18 Range/Units 05:00 05:00 05:00 WBC (4.5-11.0) 10^3/uL RBC (3.5-6.1) 10^6/uL Hgb (14.0-18.0) g/dL Hct (42.0-52.0) % MCV (80.0-105.0) fl MCH (25.0-35.0) pg MCHC (31.0-37.0) g/dl RDW (11.5-14.5) % Plt Count (120.0-450.0) 10^3/uL MPV (7.0-11.0) fl Neut % (Auto) (50.0-68.0) % Lymph % (Auto) (22.0-35.0) % [place] % (Auto) (1.0-6.0) % Eos % (Auto) (1.5-5.0) % Baso % (Auto) (0.0-3.0) % Lymph # (Auto) (1.2-3.4) [place] # (Auto) (0.1-0.6) Eos # (Auto) (0.0-0.7) Baso # (Auto) (0.0-2.0) K/mm3 Absolute Neuts (auto) (1.4-6.5) PT (9.4-12.5) SECONDS INR APTT (26.9-38.3) Seconds Sodium 139 (132-148) mmol/L Potassium 4.0 (3.6-5.0) mmol/L Chloride 106 (98-107) mmol/L Carbon Dioxide 23 (21-33) mmol/L Anion Gap 14 (10-20) BUN 19 (7-21) mg/dL Creatinine 0.7 L (0.8-1.5) mg/dl Est GFR ( Amer) > 60 Est GFR (Non-Af Amer) > 60 Random Glucose 101 (70-110) mg/dL Hemoglobin A1c 5.9 (4.2-6.5) % Calcium 8.6 (8.4-10.5) mg/dL Total Bilirubin 0.6 (0.2-1.3) mg/dL AST 50 (17-59) U/L ALT 38 (7-56) U/L Alkaline Phosphatase 58 (38-126) U/L Troponin I ng/mL Total Protein 6.8 (5.8-8.3) g/dL Albumin 3.8 (3.0-4.8) g/dL Globulin 3.0 gm/dL Albumin/Globulin Ratio 1.3 (1.1-1.8) Triglycerides 72 (35-160) mg/dL Cholesterol 163 (130-200) mg/dL LDL Cholesterol Direct 98 (0-129) mg/dL HDL Cholesterol 45 (29-60) mg/dL Free T4 1.24 (0.78-2.19) ng/dL TSH 3rd Generation 0.25 L (0.46-4.68) mIU/mL Blood Type Blood Type Confirm Antibody Screen BBK History Checked 12/06/18 12/06/18 12/06/18 Range/Units 21:09 19:41 19:35 WBC (4.5-11.0) 10^3/uL RBC (3.5-6.1) 10^6/uL Hgb (14.0-18.0) g/dL Hct (42.0-52.0) % MCV (80.0-105.0) fl MCH (25.0-35.0) pg MCHC (31.0-37.0) g/dl RDW (11.5-14.5) % Plt Count (120.0-450.0) 10^3/uL MPV (7.0-11.0) fl Neut % (Auto) (50.0-68.0) % Lymph % (Auto) (22.0-35.0) % [place] % (Auto) (1.0-6.0) % Eos % (Auto) (1.5-5.0) % Baso % (Auto) (0.0-3.0) % Lymph # (Auto) (1.2-3.4) [place] # (Auto) (0.1-0.6) Eos # (Auto) (0.0-0.7) Baso # (Auto) (0.0-2.0) K/mm3 Absolute Neuts (auto) (1.4-6.5) PT (9.4-12.5) SECONDS INR APTT (26.9-38.3) Seconds Sodium (132-148) mmol/L Potassium (3.6-5.0) mmol/L Chloride (98-107) mmol/L Carbon Dioxide (21-33) mmol/L Anion Gap (10-20) BUN (7-21) mg/dL Creatinine (0.8-1.5) mg/dl Est GFR ( Amer) Est GFR (Non-Af Amer) Random Glucose (70-110) mg/dL Hemoglobin A1c 5.9 (4.2-6.5) % Calcium (8.4-10.5) mg/dL Total Bilirubin (0.2-1.3) mg/dL AST (17-59) U/L ALT (7-56) U/L Alkaline Phosphatase (38-126) U/L Troponin I ng/mL Total Protein (5.8-8.3) g/dL Albumin (3.0-4.8) g/dL Globulin gm/dL Albumin/Globulin Ratio (1.1-1.8) Triglycerides (35-160) mg/dL Cholesterol (130-200) mg/dL LDL Cholesterol Direct (0-129) mg/dL HDL Cholesterol (29-60) mg/dL Free T4 (0.78-2.19) ng/dL TSH 3rd Generation (0.46-4.68) mIU/mL Blood Type A POSITIVE Blood Type Confirm A POSITIVE Antibody Screen Negative BBK History Checked No verified bt 12/06/18 12/06/18 12/06/18 Range/Units 19:35 19:35 19:35 WBC 5.9 (4.5-11.0) 10^3/uL RBC 5.01 (3.5-6.1) 10^6/uL Hgb 14.6 (14.0-18.0) g/dL Hct 45.7 (42.0-52.0) % MCV 91.2 (80.0-105.0) fl MCH 29.1 (25.0-35.0) pg MCHC 31.9 (31.0-37.0) g/dl RDW 13.6 (11.5-14.5) % Plt Count 276 (120.0-450.0) 10^3/uL MPV 10.7 (7.0-11.0) fl Neut % (Auto) 19.1 L (50.0-68.0) % Lymph % (Auto) 68.2 H (22.0-35.0) % [place] % (Auto) 8.6 H (1.0-6.0) % Eos % (Auto) 3.4 (1.5-5.0) % Baso % (Auto) 0.7 (0.0-3.0) % Lymph # (Auto) 4.1 H (1.2-3.4) [place] # (Auto) 0.5 (0.1-0.6) Eos # (Auto) 0.2 (0.0-0.7) Baso # (Auto) 0.04 (0.0-2.0) K/mm3 Absolute Neuts (auto) 1.14 L (1.4-6.5) PT 10.8 (9.4-12.5) SECONDS INR 0.97 APTT 26.4 L (26.9-38.3) Seconds Sodium 139 (132-148) mmol/L Potassium 4.4 (3.6-5.0) mmol/L Chloride 103 (98-107) mmol/L Carbon Dioxide 11 L (21-33) mmol/L Anion Gap 30 H (10-20) BUN 21 (7-21) mg/dL Creatinine 0.9 (0.8-1.5) mg/dl Est GFR ( Amer) > 60 Est GFR (Non-Af Amer) > 60 Random Glucose 112 H (70-110) mg/dL Hemoglobin A1c (4.2-6.5) % Calcium 9.5 (8.4-10.5) mg/dL Total Bilirubin 0.9 (0.2-1.3) mg/dL AST 53 (17-59) U/L ALT 38 (7-56) U/L Alkaline Phosphatase 57 (38-126) U/L Troponin I < 0.01 ng/mL Total Protein 8.7 H (5.8-8.3) g/dL Albumin 5.0 H (3.0-4.8) g/dL Globulin 3.7 gm/dL Albumin/Globulin Ratio 1.3 (1.1-1.8) Triglycerides 244 H (35-160) mg/dL Cholesterol 200 (130-200) mg/dL LDL Cholesterol Direct 111 (0-129) mg/dL HDL Cholesterol 51 (29-60) mg/dL Free T4 (0.78-2.19) ng/dL TSH 3rd Generation (0.46-4.68) mIU/mL Blood Type Blood Type Confirm Antibody Screen BBK History Checked Laboratory Results - last 24 hr 12/06/18 12/06/18 12/06/18 19:35 19:35 19:35 WBC 5.9 RBC 5.01 Hgb 14.6 Hct 45.7 MCV 91.2 MCH 29.1 MCHC 31.9 RDW 13.6 Plt Count 276 MPV 10.7 Neut % (Auto) 19.1 L Lymph % (Auto) 68.2 H [place] % (Auto) 8.6 H Eos % (Auto) 3.4 Baso % (Auto) 0.7 Lymph # (Auto) 4.1 H [place] # (Auto) 0.5 Eos # (Auto) 0.2 Baso # (Auto) 0.04 Absolute Neuts (auto) 1.14 L PT 10.8 INR 0.97 APTT 26.4 L Sodium 139 Potassium 4.4 Chloride 103 Carbon Dioxide 11 L Anion Gap 30 H BUN 21 Creatinine 0.9 Est GFR ( Amer) > 60 Est GFR (Non-Af Amer) > 60 Random Glucose 112 H Hemoglobin A1c Calcium 9.5 Total Bilirubin 0.9 AST 53 ALT 38 Alkaline Phosphatase 57 Troponin I < 0.01 Total Protein 8.7 H Albumin 5.0 H Globulin 3.7 Albumin/Globulin Ratio 1.3 Triglycerides 244 H Cholesterol 200 LDL Cholesterol Direct 111 HDL Cholesterol 51 Free T4 TSH 3rd Generation Blood Type Blood Type Confirm Antibody Screen BBK History Checked 12/06/18 12/06/18 12/06/18 19:35 19:41 21:09 WBC RBC Hgb Hct MCV MCH MCHC RDW Plt Count MPV Neut % (Auto) Lymph % (Auto) [place] % (Auto) Eos % (Auto) Baso % (Auto) Lymph # (Auto) [place] # (Auto) Eos # (Auto) Baso # (Auto) Absolute Neuts (auto) PT INR APTT Sodium Potassium Chloride Carbon Dioxide Anion Gap BUN Creatinine Est GFR ( Amer) Est GFR (Non-Af Amer) Random Glucose Hemoglobin A1c 5.9 Calcium Total Bilirubin AST ALT Alkaline Phosphatase Troponin I Total Protein Albumin Globulin Albumin/Globulin Ratio Triglycerides Cholesterol LDL Cholesterol Direct HDL Cholesterol Free T4 TSH 3rd Generation Blood Type A POSITIVE Blood Type Confirm A POSITIVE Antibody Screen Negative BBK History Checked No verified bt 12/07/18 12/07/18 12/07/18 05:00 05:00 05:00 WBC RBC Hgb Hct MCV MCH MCHC RDW Plt Count MPV Neut % (Auto) Lymph % (Auto) [place] % (Auto) Eos % (Auto) Baso % (Auto) Lymph # (Auto) [place] # (Auto) Eos # (Auto) Baso # (Auto) Absolute Neuts (auto) PT INR APTT Sodium 139 Potassium 4.0 Chloride 106 Carbon Dioxide 23 Anion Gap 14 BUN 19 Creatinine 0.7 L Est GFR ( Amer) > 60 Est GFR (Non-Af Amer) > 60 Random Glucose 101 Hemoglobin A1c 5.9 Calcium 8.6 Total Bilirubin 0.6 AST 50 ALT 38 Alkaline Phosphatase 58 Troponin I Total Protein 6.8 Albumin 3.8 Globulin 3.0 Albumin/Globulin Ratio 1.3 Triglycerides 72 Cholesterol 163 LDL Cholesterol Direct 98 HDL Cholesterol 45 Free T4 1.24 TSH 3rd Generation 0.25 L Blood Type Blood Type Confirm Antibody Screen BBK History Checked Radiology Impressions: Radiology Impressions Chest X-Ray 12/06/18 19:37 IMPRESSION: No active disease. 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 No seizures episodes now, on EEG currently. Keppra as per neuro. Paraylsis has resolved. F/u neuro recs for further workup including MRI. No longer needs ICU level care Rest of care as per above resident note Jayleen Mitchell MD MICU Attending
--- NOTE | 2018-12-07 13:23 | CARD ---
APPROVED REPORT Date of service: 12/06/2018 EKG Measurement Heart [id number] <Conclusion> Normal sinus rhythm Inferior infarct, age undetermined Abnormal ECG
--- NOTE | 2018-12-07 16:18 | MRI ---
Date of service: 12/07/2018 PROCEDURE: MRI BRAIN WITHOUT CONTRAST HISTORY: s/p seizure, r/o new infarct COMPARISON: None available. TECHNIQUE: Multiplanar, multisequence MR images of the brain were obtained without intravenous contrast enhancement. FINDINGS: HEMORRHAGE: None DWI: No evidence of an acute or early subacute infarction. BRAIN PARENCHYMA: No mass effect or edema. 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 There is no acute infarct VENTRICLES: Unremarkable. No hydrocephalus. CRANIUM: Unremarkable. ORBITS: Grossly unremarkable. PARANASAL SINUSES/MASTOIDS: Clear VASCULAR SYSTEM: Skull base flow voids intact. OTHER FINDINGS: None. 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 There is no acute infarct
[2018-12-07] MEDS: levETIRAcetam 500mg IVPB 500 MG/100 ML BAG IVPB SCH (21:59)
--- NOTE | 2018-12-07 23:21 | HP ---
DATE OF EXAM: 12/07/2018 HISTORY OF PRESENT ILLNESS: The patient is a 63-year-old, seen and examined, who was brought in last night. According to ER papers, the patient was trembling and shaking, so family called ambulance and he was brought to emergency room. While he was in ER, he had a seizure, so he was started on Keppra and admitted in ICU. According to nurse, he has been confused and disoriented, but when I came to see the patient and interviewed, he seemed to be quite clear. He does not recall what happened and he was surprised that he is in the hospital and he was asking me why. He was able to answer my question very intelligently. He does not remember what happened, but however he is able to recall that which year and which month and which president is at this point in time. The patient states that he has a history of CVA that affected his right upper extremity and he was weak. 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 PAST MEDICAL HISTORY: The patient also states that he has: 1. History of hypertension and borderline diabetes. 2. History of cerebellar hemorrhage in 2018 and was treated conservatively. ALLERGIES: HE IS NOT ALLERGIC TO ANY MEDICATION. MEDICATIONS AT HOME: He is on Plavix 75 daily, atorvastatin 80 mg daily, aspirin 81 daily, and daily. SOCIAL HISTORY: He used to be smoker in the past, but quit. Denies alcohol use. PHYSICAL EXAMINATION: GENERAL: He is awake and alert; able to communicate. Currently getting 24-hour EEG. VITAL SIGNS: He is afebrile, pulse 54, respirations 14, and blood pressure 114/64. LUNGS: Bilateral fair airflow. No rhonchi or crackle. HEART: S1 and S2 audible. ABDOMEN: Soft and nontender. No rebound. No guarding. NEUROLOGIC: The patient is awake and alert; able to answer appropriately. EXTREMITIES: Moves all extremity. He has a right upper extremity slight weakness. LABORATORY DATA: WBC 5.9, hemoglobin 14.6, hematocrit 45.7, and platelet 276. PT 10.8 and INR 0.97. Chemistry; sodium 139, potassium 4, chloride 106, CO2 of 23, BUN 19, creatinine 0.7, and blood sugar of 101. TSH 0.25. He had CT scan of the head done that is unremarkable, no acute intracranial finding noted. X-ray of chest is unremarkable. ASSESSMENT: 1. History of cerebrovascular accident in the past. 2. History of fall with intracranial hemorrhage in the past. 3. Seizure disorder, probably new onset. 4. History of hypertension. PLAN: Currently, the patient is on aspirin 81 daily. He is on Ativan as needed. He is on Keppra. He is on atorvastatin, Plavix, and lisinopril. Carotid Doppler has been recommended. MRI of the brain has been ordered. He is on 24-hour monitoring. He will get swallow evaluation, probably he will pass, although he could not pass last night and the patient could be fed after swallowing evaluation. Kishan Steele MD
[2018-12-08] MEDS: Sodium Chloride 0.9% 1,000 ML IV SCH ×2 (00:30→11:01)
--- NOTE | 2018-12-08 01:35 | CON ---
DATE: 12/07/2018 HISTORY OF PRESENT ILLNESS: This is a 63-year-old male with a past medical history of right parietal stroke. He came to the hospital with tonic-clonic seizure that happened at home and brought him to the emergency room. He had another seizure. Ativan was given and patient was started on Keppra. Patient was previously at [facility] last year with a stroke. I was called to evaluate the patient. PAST MEDICAL HISTORY: Stroke and it was a hemorrhagic stroke. ALLERGIES: NO KNOWN DRUG ALLERGIES. MEDICATIONS: Aspirin, Lipitor, Plavix, Keppra, lisinopril, and Ativan p.r.n. PHYSICAL EXAMINATION VITAL SIGNS: Blood pressure 146/68. HEENT: Normocephalic and atraumatic. NECK: Supple. NEUROLOGIC: Awake, drowsy. Opens eyes with command from and family at bedside. Pupils reactive. EOM's intact. Spontaneous movement of the extremities noted. Deep tendon reflexes 1+. Plantar downgoing. The left plantar is upgoing. Sensory appears intact. Cerebellar gait deferred. LABORATORY DATA: WBC 5.9, hemoglobin 14.6, hematocrit 45.7, and platelets 276. Sodium 139, potassium 4, chloride 106, CO2 of 23, glucose 101, BUN 19, creatinine 0.7. IMPRESSION AND PLAN: Seizure disorder superimposed with past history of hemorrhagic stroke. Patient was started on Keppra and Ativan p.r.n. We will do electroencephalogram. We will follow up. Aung Callahan MD
[2018-12-08] MEDS: Pantoprazole 40 mg EC Tab PO SCH (06:25)
[2018-12-08 06:32] LABS: BASO # 0.01 K/mm3 (0.0-2.0); BASO % 0.2 % (0.0-3.0); EOS # 0.1 (0.0-0.7); EOS % 2.1 % (1.5-5.0); LYMPH # 2.1 (1.2-3.4); LYMPH % 49.1 % (22.0-35.0); MEAN CORPUSCULAR HEMOGLOBIN 28.1 pg (25.0-35.0); MEAN CORPUSCULAR HGB CONC 31.6 g/dl (31.0-37.0); MEAN PLATELET VOLUME 10.2 fl (7.0-11.0); MONO # 0.3 (0.1-0.6); MONO % 6.8 % (1.0-6.0); RBC 4.45 10^6/uL (3.5-6.1); RED CELL DISTRIBUTION WIDTH 13.4 % (11.5-14.5); WHITE BLOOD COUNT 4.3 10^3/uL (4.5-11.0)
[2018-12-08 06:38] LABS: HEMOGLOBIN 12.5 g/dL (14.0-18.0)
[2018-12-08 06:47] LABS: ALB/GLOB RATIO 1.2 (1.1-1.8); ALBUMIN 3.6 g/dL (3.0-4.8); ALT/SGPT 33 U/L (7-56); AST/SGOT 42 U/L (17-59); BLOOD UREA NITROGEN 14 mg/dL (7-21); CALCIUM 8.7 mg/dL (8.4-10.5); GFR NON-AFRICAN AMERICAN > 60
--- NOTE | 2018-12-08 09:11 | CP.CCUPN ---
<Dayron Biswas - Last Filed: 12/08/18 09:15> CCU Subjective - Physician Review Subjective (Free Text): Dayron Biswas PGY-1 Critical Care Progress Note Patient seen and evaluated at bedside. No acute events reported overnight. Patient states he slept without issue. Reports lethargy but denies chest pain, palpitations, shortness of breath, headaches, blurry vision, disorientation and eye pain. CCU Objective - Vital Signs / Intake & Output Intake and Output (Last 8hrs): Intake & Output 12/07/18 12/08/18 12/08/18 22:59 06:59 14:59 Intake Total 1490 1490 Output Total 675 1500 Balance 815 -10 Intake: IV 1250 1150 Right Antecubital 0 Right Forearm 1250 1150 Oral 240 240 Tube Feeding 0 0 TPN/PPN 0 0 Blood Product 0 0 Lipid 0 0 Albumin 0 0 Other 0 100 Output: Urine 675 1500 Urine, Voided 675 1500 Stool 0 0 Urine/Stool Mix 0 0 Emesis 0 0 Oral Regurgitation 0 0 Other 0 0 Other: # Voids Urine, Voided 3 5 # Bowel Movements 0 0 - Physical Exam Head: Positive for: Atraumatic, Normocephalic Pupils: Positive for: PERRL Extroacular Muscles: Positive for: EOMI Conjunctiva: Positive for: Normal Ears: Positive for: NORMAL TM Mouth: Positive for: Moist Mucous Membranes, Normal Tounge Pharnyx: Positive for: Normal Neck: Positive for: Normal Range of Motion. Negative for: Meningeal Signs Respiratory/Chest: Positive for: Clear to Auscultation, Good Air Exchange. Negative for: Respiratory Distress, Accessory Muscle Use Cardiovascular: Positive for: Regular Rate and Rhythm, Normal S1, S2. Negative for: Murmurs Abdomen: Negative for: Tenderness, Distention, Peritoneal Signs Back: Positive for: Normal Inspection Upper Extremity: Positive for: Normal Inspection, NORMAL PULSES. Negative for: Cyanosis, Edema Lower Extremity: Positive for: Normal Inspection, NORMAL PULSES. Negative for: Edema Neurological: Positive for: GCS=15, CN II-XII Intact, Speech Normal, Other (Full ROM b/l with no obvious residual motor deficits) Skin: Positive for: Warm, Dry, Normal Color. Negative for: Rashes Psychiatric: Positive for: Alert, Oriented x 3, Normal Insight, Normal Concentration - Medications Active Medications: Active Medications Generic Name Dose Route Start Last Admin Trade Name Freq PRN Reason Stop Dose Admin Aspirin 81 mg 12/07/18 10:00 12/07/18 17:05 Aspirin Chewable PO 81 mg DAILY CATRINA Administration Atorvastatin Calcium 80 mg 12/07/18 10:00 12/07/18 17:05 Lipitor PO 80 mg DAILY CATRINA Administration Clopidogrel Bisulfate 75 mg 12/07/18 10:00 12/07/18 17:05 Plavix PO 75 mg DAILY CATRINA Administration Escitalopram Oxalate 10 mg 12/07/18 22:00 12/07/18 21:59 Lexapro PO 10 mg HS CATRINA Administration Sodium Chloride 1,000 mls @ 100 mls/hr 12/06/18 19:45 12/08/18 00:30 Sodium Chloride 0.9% IV 100 mls/hr .Q10H CATRINA Administration Levetiracetam 500 mg in 100 mls @ 240 mls/hr 12/07/18 11:52 12/07/18 21:59 Keppra 500mg Ivpb IVPB 240 mls/hr Q12 CATRINA Administration Lisinopril 2.5 mg 12/07/18 10:00 12/07/18 17:05 Zestril PO 2.5 mg DAILY CATRINA Administration Lorazepam 1 mg 12/06/18 22:09 12/07/18 17:02 Ativan IVP 1 mg Q6H PRN Administration Seizure activity Protocol Pantoprazole Sodium 40 mg 12/08/18 06:00 12/08/18 06:25 Protonix Ec Tab PO 40 mg 0600 CATRINA Administration - Patient Studies Lab Studies: Lab Studies 12/08/18 12/08/18 12/08/18 Range/Units 08:44 05:28 05:28 WBC 4.3 L D (4.5-11.0) 10^3/uL RBC 4.45 (3.5-6.1) 10^6/uL Hgb 12.5 L D (14.0-18.0) g/dL Hct 39.6 L (42.0-52.0) % MCV 89.0 (80.0-105.0) fl MCH 28.1 (25.0-35.0) pg MCHC 31.6 (31.0-37.0) g/dl RDW 13.4 (11.5-14.5) % Plt Count 202 (120.0-450.0) 10^3/uL MPV 10.2 (7.0-11.0) fl Neut % (Auto) 41.8 L (50.0-68.0) % Lymph % (Auto) 49.1 H (22.0-35.0) % [place] % (Auto) 6.8 H (1.0-6.0) % Eos % (Auto) 2.1 (1.5-5.0) % Baso % (Auto) 0.2 (0.0-3.0) % Lymph # (Auto) 2.1 (1.2-3.4) [place] # (Auto) 0.3 (0.1-0.6) Eos # (Auto) 0.1 (0.0-0.7) Baso # (Auto) 0.01 (0.0-2.0) K/mm3 Absolute Neuts (auto) 1.78 (1.4-6.5) Sodium 141 (132-148) mmol/L Potassium 4.3 (3.6-5.0) mmol/L Chloride 111 H (98-107) mmol/L Carbon Dioxide 24 (21-33) mmol/L Anion Gap 11 (10-20) BUN 14 (7-21) mg/dL Creatinine 0.7 L (0.8-1.5) mg/dl Est GFR ( Amer) > 60 Est GFR (Non-Af Amer) > 60 POC Glucose (mg/dL) 87 (65-110) mg/dL Random Glucose 83 (70-110) mg/dL Hemoglobin A1c (4.2-6.5) % Calcium 8.7 (8.4-10.5) mg/dL Phosphorus 3.4 (2.5-4.5) mg/dL Magnesium 1.9 (1.7-2.2) mg/dL Total Bilirubin 0.7 (0.2-1.3) mg/dL AST 42 (17-59) U/L ALT 33 (7-56) U/L Alkaline Phosphatase 54 (38-126) U/L Total Protein 6.7 (5.8-8.3) g/dL Albumin 3.6 (3.0-4.8) g/dL Globulin 3.1 gm/dL Albumin/Globulin Ratio 1.2 (1.1-1.8) 12/07/18 12/07/18 12/07/18 Range/Units 21:17 18:01 11:50 WBC (4.5-11.0) 10^3/uL RBC (3.5-6.1) 10^6/uL Hgb (14.0-18.0) g/dL Hct (42.0-52.0) % MCV (80.0-105.0) fl MCH (25.0-35.0) pg MCHC (31.0-37.0) g/dl RDW (11.5-14.5) % Plt Count (120.0-450.0) 10^3/uL MPV (7.0-11.0) fl Neut % (Auto) (50.0-68.0) % Lymph % (Auto) (22.0-35.0) % [place] % (Auto) (1.0-6.0) % Eos % (Auto) (1.5-5.0) % Baso % (Auto) (0.0-3.0) % Lymph # (Auto) (1.2-3.4) [place] # (Auto) (0.1-0.6) Eos # (Auto) (0.0-0.7) Baso # (Auto) (0.0-2.0) K/mm3 Absolute Neuts (auto) (1.4-6.5) Sodium (132-148) mmol/L Potassium (3.6-5.0) mmol/L Chloride (98-107) mmol/L Carbon Dioxide (21-33) mmol/L Anion Gap (10-20) BUN (7-21) mg/dL Creatinine (0.8-1.5) mg/dl Est GFR ( Amer) Est GFR (Non-Af Amer) POC Glucose (mg/dL) 144 H 101 94 (65-110) mg/dL Random Glucose (70-110) mg/dL Hemoglobin A1c (4.2-6.5) % Calcium (8.4-10.5) mg/dL Phosphorus (2.5-4.5) mg/dL Magnesium (1.7-2.2) mg/dL Total Bilirubin (0.2-1.3) mg/dL AST (17-59) U/L ALT (7-56) U/L Alkaline Phosphatase (38-126) U/L Total Protein (5.8-8.3) g/dL Albumin (3.0-4.8) g/dL Globulin gm/dL Albumin/Globulin Ratio (1.1-1.8) 12/07/18 12/06/18 Range/Units 05:00 19:35 WBC (4.5-11.0) 10^3/uL RBC (3.5-6.1) 10^6/uL Hgb (14.0-18.0) g/dL Hct (42.0-52.0) % MCV (80.0-105.0) fl MCH (25.0-35.0) pg MCHC (31.0-37.0) g/dl RDW (11.5-14.5) % Plt Count (120.0-450.0) 10^3/uL MPV (7.0-11.0) fl Neut % (Auto) (50.0-68.0) % Lymph % (Auto) (22.0-35.0) % [place] % (Auto) (1.0-6.0) % Eos % (Auto) (1.5-5.0) % Baso % (Auto) (0.0-3.0) % Lymph # (Auto) (1.2-3.4) [place] # (Auto) (0.1-0.6) Eos # (Auto) (0.0-0.7) Baso # (Auto) (0.0-2.0) K/mm3 Absolute Neuts (auto) (1.4-6.5) Sodium (132-148) mmol/L Potassium (3.6-5.0) mmol/L Chloride (98-107) mmol/L Carbon Dioxide (21-33) mmol/L Anion Gap (10-20) BUN (7-21) mg/dL Creatinine (0.8-1.5) mg/dl Est GFR ( Amer) Est GFR (Non-Af Amer) POC Glucose (mg/dL) (65-110) mg/dL Random Glucose (70-110) mg/dL Hemoglobin A1c 5.9 5.9 (4.2-6.5) % Calcium (8.4-10.5) mg/dL Phosphorus (2.5-4.5) mg/dL Magnesium (1.7-2.2) mg/dL Total Bilirubin (0.2-1.3) mg/dL AST (17-59) U/L ALT (7-56) U/L Alkaline Phosphatase (38-126) U/L Total Protein (5.8-8.3) g/dL Albumin (3.0-4.8) g/dL Globulin gm/dL Albumin/Globulin Ratio (1.1-1.8) Laboratory Results - last 24 hr 12/06/18 12/07/18 12/07/18 19:35 05:00 11:50 WBC RBC Hgb Hct MCV MCH MCHC RDW Plt Count MPV Neut % (Auto) Lymph % (Auto) [place] % (Auto) Eos % (Auto) Baso % (Auto) Lymph # (Auto) [place] # (Auto) Eos # (Auto) Baso # (Auto) Absolute Neuts (auto) Sodium Potassium Chloride Carbon Dioxide Anion Gap BUN Creatinine Est GFR ( Amer) Est GFR (Non-Af Amer) POC Glucose (mg/dL) 94 Random Glucose Hemoglobin A1c 5.9 5.9 Calcium Phosphorus Magnesium Total Bilirubin AST ALT Alkaline Phosphatase Total Protein Albumin Globulin Albumin/Globulin Ratio 12/07/18 12/07/18 12/08/18 18:01 21:17 05:28 WBC 4.3 L D RBC 4.45 Hgb 12.5 L D Hct 39.6 L MCV 89.0 MCH 28.1 MCHC 31.6 RDW 13.4 Plt Count 202 MPV 10.2 Neut % (Auto) 41.8 L Lymph % (Auto) 49.1 H [place] % (Auto) 6.8 H Eos % (Auto) 2.1 Baso % (Auto) 0.2 Lymph # (Auto) 2.1 [place] # (Auto) 0.3 Eos # (Auto) 0.1 Baso # (Auto) 0.01 Absolute Neuts (auto) 1.78 Sodium Potassium Chloride Carbon Dioxide Anion Gap BUN Creatinine Est GFR ( Amer) Est GFR (Non-Af Amer) POC Glucose (mg/dL) 101 144 H Random Glucose Hemoglobin A1c Calcium Phosphorus Magnesium Total Bilirubin AST ALT Alkaline Phosphatase Total Protein Albumin Globulin Albumin/Globulin Ratio 12/08/18 12/08/18 05:28 08:44 WBC RBC Hgb Hct MCV MCH MCHC RDW Plt Count MPV Neut % (Auto) Lymph % (Auto) [place] % (Auto) Eos % (Auto) Baso % (Auto) Lymph # (Auto) [place] # (Auto) Eos # (Auto) Baso # (Auto) Absolute Neuts (auto) Sodium 141 Potassium 4.3 Chloride 111 H Carbon Dioxide 24 Anion Gap 11 BUN 14 Creatinine 0.7 L Est GFR ( Amer) > 60 Est GFR (Non-Af Amer) > 60 POC Glucose (mg/dL) 87 Random Glucose 83 Hemoglobin A1c Calcium 8.7 Phosphorus 3.4 Magnesium 1.9 Total Bilirubin 0.7 AST 42 ALT 33 Alkaline Phosphatase 54 Total Protein 6.7 Albumin 3.6 Globulin 3.1 Albumin/Globulin Ratio 1.2 Radiology Impressions: Radiology Impressions Chest X-Ray 12/06/18 19:37 IMPRESSION: No active disease. Brain MRI 12/07/18 11:24 IMPRESSION: Chronic cystic encephalomalacia is seen in the right parietal and posterior temporal lobe. There is no acute infarct Fingerstick Blood Sugar Results: 144 Review of Systems - Review of Systems Review of Systems: 12 point ROS completed and negative except as described in HPI. Critical Care Progress Note - Nutrition Nutrition: Nutrition Category Date Time Status Heart Healthy Diet [DIET] Diets 12/07/18 Lunch Active Assessment/Plan - Assessment and Plan (Free Text) Assessment: Mr. Vaughn is a 63 M with pertinent medical hx of past CVA, HTN, CAD with multiple stents and cerebral hemorrhage in 06/08 presented with repeat seizures. Family reports previous seizures treated at [facility] [place]. Patient is currently hemodynamically stable, in no respiratory or cardiovascular distress, speaking without motor deficits. Neuro: -F/U Video EEG report -AAOx3, no FND at this time, moving extremities past midline. -C/w Keppra 500 mg BID -MRI brain without contrast reveals no new infarct, chronic R cystic encephalomalacia -F/U carotid U/S -Monitor neuro status. Fall and seizure precautions -Reorient patient as necessary. -Neuro on consult - Dr. Lalo Florentino, Ativan Cardio: -RRR, normotensive, no signs of HD compromise -Maintain MAP>65. -Monitor for S/S, HD compromise. Pulm: -No signs of respiratory distress. CTA B/L -Maintain O2 saturation>90%. -O2 NC PRN -aspiration precautions -12/06 CXR negative for acute findings -Elevate bed to 30 degrees GI: -HHD, thin liquid diet -Protonix /Nephro: -BUN/Cr stable -Continue monitoring. -Replete electrolytes as needed. -Maintain euvolemia. Endocrinology: -Random glucose: 87 -Maintain euglycemia. Heme/Onc: -H/H stable -No signs of HD compromise. -Continue monitoring H/H ID: -Afebrile, no leukocytosis -Monitor for signs and symptoms of infection. DVT ppx: SCDs Patient seen, case reviewed and plan approved by Dr. Zahra Mitchell. Dayron Biswas, PGY-1 <Jayleen Mitchell - Last Filed: 12/08/18 15:59> CCU Objective - Vital Signs / Intake & Output Vital Signs (Last 4 hours): Vital Signs Temp Pulse Resp BP Pulse Ox 12/08/18 13:00 63 14 120/69 97 12/08/18 12:02 63 22 148/87 99 12/08/18 12:00 98.3 F 69 97 Intake and Output (Last 8hrs): Intake & Output 12/08/18 12/08/18 12/08/18 06:59 14:59 22:59 Intake Total 1490 660 Output Total 1500 1000 Balance -10 -340 Intake: IV 1150 660 Right Antecubital 0 Right Forearm 1150 660 Oral 240 Tube Feeding 0 TPN/PPN 0 Blood Product 0 Lipid 0 Albumin 0 Other 100 Output: Urine 1500 700 Urine, Voided 1500 700 Stool 0 300 Urine/Stool Mix 0 Emesis 0 Oral Regurgitation 0 Other 0 Other: # Voids Urine, Voided 5 # Bowel Movements 0 - Medications Active Medications: Active Medications Generic Name Dose Route Start Last Admin Trade Name Freq PRN Reason Stop Dose Admin Aspirin 81 mg 12/07/18 10:00 12/08/18 10:09 Aspirin Chewable PO 81 mg DAILY CATRINA Administration Atorvastatin Calcium 80 mg 12/07/18 10:00 12/08/18 10:09 Lipitor PO 80 mg DAILY CATRINA Administration Clopidogrel Bisulfate 75 mg 12/07/18 10:00 12/08/18 10:09 Plavix PO 75 mg DAILY CATRINA Administration Escitalopram Oxalate 10 mg 12/07/18 22:00 12/07/18 21:59 Lexapro PO 10 mg HS CATRINA Administration Levetiracetam 500 mg 12/08/18 18:00 Keppra PO BID CATRINA Lisinopril 2.5 mg 12/07/18 10:00 12/08/18 10:09 Zestril PO 2.5 mg DAILY CATRINA Administration Lorazepam 1 mg 12/06/18 22:09 12/07/18 17:02 Ativan IVP 1 mg Q6H PRN Administration Seizure activity Protocol Pantoprazole Sodium 40 mg 12/08/18 06:00 12/08/18 06:25 Protonix Ec Tab PO 40 mg 0600 CATRINA Administration - Patient Studies Lab Studies: Microbiology Studies 12/07/18 00:50 MRSA Culture (Admit) - Final Naris MRSA NOT DETECTED Lab Studies 12/08/18 12/08/18 12/08/18 Range/Units 11:54 08:44 05:28 WBC (4.5-11.0) 10^3/uL RBC (3.5-6.1) 10^6/uL Hgb (14.0-18.0) g/dL Hct (42.0-52.0) % MCV (80.0-105.0) fl MCH (25.0-35.0) pg MCHC (31.0-37.0) g/dl RDW (11.5-14.5) % Plt Count (120.0-450.0) 10^3/uL MPV (7.0-11.0) fl Neut % (Auto) (50.0-68.0) % Lymph % (Auto) (22.0-35.0) % [place] % (Auto) (1.0-6.0) % Eos % (Auto) (1.5-5.0) % Baso % (Auto) (0.0-3.0) % Lymph # (Auto) (1.2-3.4) [place] # (Auto) (0.1-0.6) Eos # (Auto) (0.0-0.7) Baso # (Auto) (0.0-2.0) K/mm3 Absolute Neuts (auto) (1.4-6.5) Sodium 141 (132-148) mmol/L Potassium 4.3 (3.6-5.0) mmol/L Chloride 111 H (98-107) mmol/L Carbon Dioxide 24 (21-33) mmol/L Anion Gap 11 (10-20) BUN 14 (7-21) mg/dL Creatinine 0.7 L (0.8-1.5) mg/dl Est GFR ( Amer) > 60 Est GFR (Non-Af Amer) > 60 POC Glucose (mg/dL) 95 87 (65-110) mg/dL Random Glucose 83 (70-110) mg/dL Calcium 8.7 (8.4-10.5) mg/dL Phosphorus 3.4 (2.5-4.5) mg/dL Magnesium 1.9 (1.7-2.2) mg/dL Total Bilirubin 0.7 (0.2-1.3) mg/dL AST 42 (17-59) U/L ALT 33 (7-56) U/L Alkaline Phosphatase 54 (38-126) U/L Total Protein 6.7 (5.8-8.3) g/dL Albumin 3.6 (3.0-4.8) g/dL Globulin 3.1 gm/dL Albumin/Globulin Ratio 1.2 (1.1-1.8) 12/08/18 12/07/18 12/07/18 Range/Units 05:28 21:17 18:01 WBC 4.3 L D (4.5-11.0) 10^3/uL RBC 4.45 (3.5-6.1) 10^6/uL Hgb 12.5 L D (14.0-18.0) g/dL Hct 39.6 L (42.0-52.0) % MCV 89.0 (80.0-105.0) fl MCH 28.1 (25.0-35.0) pg MCHC 31.6 (31.0-37.0) g/dl RDW 13.4 (11.5-14.5) % Plt Count 202 (120.0-450.0) 10^3/uL MPV 10.2 (7.0-11.0) fl Neut % (Auto) 41.8 L (50.0-68.0) % Lymph % (Auto) 49.1 H (22.0-35.0) % [place] % (Auto) 6.8 H (1.0-6.0) % Eos % (Auto) 2.1 (1.5-5.0) % Baso % (Auto) 0.2 (0.0-3.0) % Lymph # (Auto) 2.1 (1.2-3.4) [place] # (Auto) 0.3 (0.1-0.6) Eos # (Auto) 0.1 (0.0-0.7) Baso # (Auto) 0.01 (0.0-2.0) K/mm3 Absolute Neuts (auto) 1.78 (1.4-6.5) Sodium (132-148) mmol/L Potassium (3.6-5.0) mmol/L Chloride (98-107) mmol/L Carbon Dioxide (21-33) mmol/L Anion Gap (10-20) BUN (7-21) mg/dL Creatinine (0.8-1.5) mg/dl Est GFR ( Amer) Est GFR (Non-Af Amer) POC Glucose (mg/dL) 144 H 101 (65-110) mg/dL Random Glucose (70-110) mg/dL Calcium (8.4-10.5) mg/dL Phosphorus (2.5-4.5) mg/dL Magnesium (1.7-2.2) mg/dL Total Bilirubin (0.2-1.3) mg/dL AST (17-59) U/L ALT (7-56) U/L Alkaline Phosphatase (38-126) U/L Total Protein (5.8-8.3) g/dL Albumin (3.0-4.8) g/dL Globulin gm/dL Albumin/Globulin Ratio (1.1-1.8) 12/07/18 Range/Units 11:50 WBC (4.5-11.0) 10^3/uL RBC (3.5-6.1) 10^6/uL Hgb (14.0-18.0) g/dL Hct (42.0-52.0) % MCV (80.0-105.0) fl MCH (25.0-35.0) pg MCHC (31.0-37.0) g/dl RDW (11.5-14.5) % Plt Count (120.0-450.0) 10^3/uL MPV (7.0-11.0) fl Neut % (Auto) (50.0-68.0) % Lymph % (Auto) (22.0-35.0) % [place] % (Auto) (1.0-6.0) % Eos % (Auto) (1.5-5.0) % Baso % (Auto) (0.0-3.0) % Lymph # (Auto) (1.2-3.4) [place] # (Auto) (0.1-0.6) Eos # (Auto) (0.0-0.7) Baso # (Auto) (0.0-2.0) K/mm3 Absolute Neuts (auto) (1.4-6.5) Sodium (132-148) mmol/L Potassium (3.6-5.0) mmol/L Chloride (98-107) mmol/L Carbon Dioxide (21-33) mmol/L Anion Gap (10-20) BUN (7-21) mg/dL Creatinine (0.8-1.5) mg/dl Est GFR ( Amer) Est GFR (Non-Af Amer) POC Glucose (mg/dL) 94 (65-110) mg/dL Random Glucose (70-110) mg/dL Calcium (8.4-10.5) mg/dL Phosphorus (2.5-4.5) mg/dL Magnesium (1.7-2.2) mg/dL Total Bilirubin (0.2-1.3) mg/dL AST (17-59) U/L ALT (7-56) U/L Alkaline Phosphatase (38-126) U/L Total Protein (5.8-8.3) g/dL Albumin (3.0-4.8) g/dL Globulin gm/dL Albumin/Globulin Ratio (1.1-1.8) Laboratory Results - last 24 hr 12/07/18 12/07/18 12/07/18 11:50 18:01 21:17 WBC RBC Hgb Hct MCV MCH MCHC RDW Plt Count MPV Neut % (Auto) Lymph % (Auto) [place] % (Auto) Eos % (Auto) Baso % (Auto) Lymph # (Auto) [place] # (Auto) Eos # (Auto) Baso # (Auto) Absolute Neuts (auto) Sodium Potassium Chloride Carbon Dioxide Anion Gap BUN Creatinine Est GFR ( Amer) Est GFR (Non-Af Amer) POC Glucose (mg/dL) 94 101 144 H Random Glucose Calcium Phosphorus Magnesium Total Bilirubin AST ALT Alkaline Phosphatase Total Protein Albumin Globulin Albumin/Globulin Ratio 12/08/18 12/08/18 12/08/18 05:28 05:28 08:44 WBC 4.3 L D RBC 4.45 Hgb 12.5 L D Hct 39.6 L MCV 89.0 MCH 28.1 MCHC 31.6 RDW 13.4 Plt Count 202 MPV 10.2 Neut % (Auto) 41.8 L Lymph % (Auto) 49.1 H [place] % (Auto) 6.8 H Eos % (Auto) 2.1 Baso % (Auto) 0.2 Lymph # (Auto) 2.1 [place] # (Auto) 0.3 Eos # (Auto) 0.1 Baso # (Auto) 0.01 Absolute Neuts (auto) 1.78 Sodium 141 Potassium 4.3 Chloride 111 H Carbon Dioxide 24 Anion Gap 11 BUN 14 Creatinine 0.7 L Est GFR ( Amer) > 60 Est GFR (Non-Af Amer) > 60 POC Glucose (mg/dL) 87 Random Glucose 83 Calcium 8.7 Phosphorus 3.4 Magnesium 1.9 Total Bilirubin 0.7 AST 42 ALT 33 Alkaline Phosphatase 54 Total Protein 6.7 Albumin 3.6 Globulin 3.1 Albumin/Globulin Ratio 1.2 12/08/18 11:54 WBC RBC Hgb Hct MCV MCH MCHC RDW Plt Count MPV Neut % (Auto) Lymph % (Auto) [place] % (Auto) Eos % (Auto) Baso % (Auto) Lymph # (Auto) [place] # (Auto) Eos # (Auto) Baso # (Auto) Absolute Neuts (auto) Sodium Potassium Chloride Carbon Dioxide Anion Gap BUN Creatinine Est GFR ( Amer) Est GFR (Non-Af Amer) POC Glucose (mg/dL) 95 Random Glucose Calcium Phosphorus Magnesium Total Bilirubin AST ALT Alkaline Phosphatase Total Protein Albumin Globulin Albumin/Globulin Ratio Radiology Impressions: Radiology Impressions Brain MRI 12/07/18 11:24 IMPRESSION: Chronic cystic encephalomalacia is seen in the right parietal and posterior temporal lobe. There is no acute infarct Carotid Artery Ultrasound 12/08/18 22:08 IMPRESSION: 1. Bilateral 20-39% proximal ICA stenoses. 2. Antegrade flow in both vertebral arteries. Critical Care Progress Note - Nutrition Nutrition: Nutrition Category Date Time Status Heart Healthy Diet [DIET] Diets 12/07/18 Lunch Active Addendum Addendum: 12/08/18 15:59 MICU Attending addendum Patient seen and examined with housestaff on 12/06 Agree with resident note above with the follow add/exceptions 63 M with hx of CVA, HTN, CAD with multiple stents and cerebral hemorrhage in 06/08 presented seziures and what appeared to be T[place] paralysis. No seizures episodes now, on EEG currently. Keppra as per neuro. Paraylsis has resolved. F/u neuro recs kept him yest in ICU because concern he was having aura however did not have any seizure events overnight No longer needs ICU level care Rest of care as per above resident note Jayleen Mitchell MD MICU Attending
--- NOTE | 2018-12-08 09:49 | PCM.VEEG ---
Video EEG - Procedure Start Date: 12/07/18 Start Time: 05:00 End Date: 12/07/18 End Time: 12:10 Technical Summary: DATA ACQUISITION: This was a multichannel inpatient video-EEG, a minimum of 22 channels were uti lized, performed in accordance with recommendations specified by the [employer] (Jg Recinos et al. ACNS Guideline 1: Minimum Technical Requirements for Performing Clinical Electroencephalography. Journal of Clinical Neurophysiology 2016;33:303-7). The 10-20 electrode placement system was utilized in accordance with guidelines detailed by the International Federation of Clinical Neurophysiology (Maria Dolores Miles et al. The Ten-Twenty Electrode System of the International Federation. Recommendations for the Practice of Clinical Neurophysiology: Guidelines of the International Federation of Clinical Physiology 1999; EEG Suppl. 52.). DATA REVIEW / SPIKE DETECTION / DIGITAL ANALYSIS: The entire EEG was scanned and reviewed. Synchronized audio and video recording were reviewed at the time of each alarm and whenever an abnormality or suspicious activity was noted. The entire recording was analyzed utilizing an automated digital spike and seizure analysis program and all automatic spike and seizure detections were manually reviewed. A compressed spectral array was displayed and reviewed alongside the raw EEG tracings. In addition, further analysis of the EEG was performed when abnormalities were identified, including montage changes, dipole source localization, and frequency band identification. Video portion of the study is necessary to correlate abnormal EEG activity with clinical behavior. This study was attended 24 hours per day. - Interpretation Description of the study: Indication; new onset seizures. EEG Finding during wakefulness: During active states, the EEG was characterized by 10-20 Hz, 15-30 uV activity bilaterally in fronto-central regions, with slightly slower frequencies and higher amplitudes emerging on the right. Resting wakefulness was characterized by a symmetric posterior dominant rhythm of 8Hz, 30-50 uV, which was reactive to eye opening and closing, there was a proper anterior to posterior organization. . Drowsiness was associated with slow roving eye movements, slowing and fragmentation of the posterior dominant rhythm, and bilateral 4-7 Hz, 40-70 uV theta activity, sometimes with a shifting predominance. Hyperventilation and photic stimulation were not performed. EEG Finding during sleep: Sleep was not recorded. Interictal non-epileptiform abnormalities: there was continuous right frontal/temporal slowing at 4 Hz. Interictal epileptiform abnormalities: None Ictal epileptiform abnormalities: None - Impression Impression: This is an abnormal video-EEG monitoring study due to the presence of 1- Right frontal/temporal slowing. No seizures were capture, no PB activations INTERPRETATION: The above mentioned findings are in keeping with a focal cortical abnormality involving the right frontal/temporal region, this is in keeping with a structural abnormality in the same area.
[2018-12-08] MEDS: levETIRAcetam 500mg IVPB 500 MG/100 ML BAG IVPB SCH (10:08)
--- NOTE | 2018-12-08 12:04 | CP.PCM.PCO ---
Physician Communication Note - Physician Communication Note Physician Communication Note: carotid duplex pending, PT eval pending.
--- NOTE | 2018-12-08 15:47 | US ---
PROCEDURE: Bilat carotid artery duplex ultrasound HISTORY: Carotid stenosis syncope PHYSICIAN(S): Pop Strauss MD. TECHNIQUE: Duplex sonography and color-flow Doppler were used to evaluate the carotid bifurcations and limited segments of the vertebral arteries bilaterally. FINDINGS: There is mild smooth heterogeneous plaque noted at the carotid bifurcations bilaterally. The peak systolic velocity in the proximal right internal carotid artery is 77 cm/sec. This corresponds to a 20 to 39% proximal right ICA stenosis. Normal systolic velocities are noted in the proximal right external carotid artery. There is antegrade flow in the small right vertebral artery. The peak systolic velocity in the proximal left internal carotid artery is 87 cm/sec. This corresponds to a 20 to 39% proximal left ICA stenosis. Normal systolic velocities are noted in the proximal left external carotid artery. There is antegrade flow in the dominant left vertebral artery. IMPRESSION: 1. Bilateral 20-39% proximal ICA stenoses. 2. Antegrade flow in both vertebral arteries.
--- NOTE | 2018-12-08 15:57 | PN ---
DATE: 12/08/2018 SUBJECTIVE: The patient is a 63-year-old, seen and examined, fully awake, alert, and oriented. No seizure noted, eating and tolerating. PHYSICAL EXAMINATION: VITAL SIGNS: The patient is afebrile, pulse 65, respirations 20, and blood pressure 137/73. LUNGS: Bilateral fair airflow. No rhonchi or crackle. HEART: S1 and S2 audible. ABDOMEN: Soft and nontender. No rebound. No guarding. NEUROLOGIC: He is awake and alert; able to communicate. LABORATORY DATA: WBC is 4.3, hemoglobin 12, hematocrit 39.6, and platelets 202. Chemistry; sodium 141, potassium 4.3, chloride 111, CO2 of 24, BUN 14, creatinine 0.7, and blood sugar of 87. ASSESSMENT: 1. New onset of seizure. 2. History of intracranial bleed. 3. History of cerebrovascular accident in the past. 4. Coronary artery disease. PLAN: EEG shows right frontotemporal slowing. No seizures were captured. The patient will be transferred to medical floor. We will get TCU evaluation. We will see his performance and we will continue him on Keppra, Plavix, atorvastatin, and I will discontinue IV fluids. The patient is eating and tolerating and we will make disposition plan according to his performance in physical therapy. Kishan Steele MD
[2018-12-09] MEDS: Pantoprazole 40 mg EC Tab PO SCH (05:43)
[2018-12-09 07:23] LABS: BASO # 0.01 K/mm3 (0.0-2.0); BASO % 0.2 % (0.0-3.0); EOS # 0.2 (0.0-0.7); EOS % 4.1 % (1.5-5.0); HEMOGLOBIN 12.5 g/dL (14.0-18.0); LYMPH # 2.2 (1.2-3.4); LYMPH % 52.3 % (22.0-35.0); MEAN CELL VOLUME 88.3 fl (80.0-105.0); MEAN CORPUSCULAR HGB CONC 31.7 g/dl (31.0-37.0); MEAN PLATELET VOLUME 10.5 fl (7.0-11.0); MONO # 0.3 (0.1-0.6); MONO % 7.7 % (1.0-6.0); RBC 4.46 10^6/uL (3.5-6.1); RED CELL DISTRIBUTION WIDTH 13.2 % (11.5-14.5); WHITE BLOOD COUNT 4.1 10^3/uL (4.5-11.0)
[2018-12-09 07:41] LABS: ALB/GLOB RATIO 1.2 (1.1-1.8); ALBUMIN 3.6 g/dL (3.0-4.8); ALT/SGPT 40 U/L (7-56); AST/SGOT 33 U/L (17-59); BLOOD UREA NITROGEN 15 mg/dL (7-21); CALCIUM 9.2 mg/dL (8.4-10.5); GFR NON-AFRICAN AMERICAN > 60
[2018-12-09 08:13] VITALS: RESP 18
[2018-12-09 16:22] VITALS: BP 137/77; PULSE 61; TEMP 98.2; O2SAT 98
--- NOTE | 2018-12-10 00:06 | DS ---
HISTORY OF PRESENT ILLNESS: The patient is a 63-year-old [place] male who lives with his family, he does not recall what happened; however, he found himself in the hospital, was confused. According to , he was having shaking movement. When he came to ER, he had a seizure and he was admitted in ICU. He has postictal confusion. The patient has past medical history significant for CVA with right upper extremity weakness that was in 09/2018 and in 05/2018, he was walking outside, he fell, and had intracranial bleed. Other than that he has a history of hypertension with angioplasty. The patient was admitted in ICU, closely observed. No seizure like activity was noted while he was in observation in ICU. He was transferred out and got physical therapy, doing very well, and being discharged home today. PHYSICAL EXAMINATION: GENERAL: He is awake, alert, and able to communicate. VITAL SIGNS: He is afebrile, pulse 56, respirations 18, and blood pressure 125/86. LUNGS: Bilateral fair airflow. No rhonchi or crackles. HEART: S1 and S2 audible. ABDOMEN: Soft and nontender. No rebound. No guarding. NEUROLOGIC: The patient is awake, alert, and able to communicate. LABORATORY DATA: WBC 4.1, hemoglobin 12, hematocrit 39, and platelet of 202. PT 10.8 and INR 0.97. Chemistry; sodium 140, potassium 3.9, chloride 107, CO2 of 24, BUN 15, creatinine 0.8, and blood sugar of 83. Had carotid Doppler ultrasound done that is unremarkable. ASSESSMENT: 1. 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 2. Hypertension. 3. Hyperlipidemia. 4. Coronary artery disease. PLAN: The patient is going to be discharged home on Keppra 500 twice a day. We will maintain him on Nexium, Lexapro, Plavix, aspirin, atorvastatin, and lisinopril. Kishan Steele MD
== END 2018-12-09 18:47 | disposition home or self-care (01) | DRG 101 ==
LOC: ED 19:30 → ERH 21:53 → CCU 12-07 00:53 → ICU 12-07 17:58 → 3RNO 12-08 14:14
PROVIDERS: ADMIT Internal Medicine; ATTEND Internal Medicine
DX: R56.9 Unspecified convulsions (principal); G81.94 Hemiplegia, unspecified affecting left nondominant side; G83.84 Todd's paralysis (postepileptic); I10 Essential (primary) hypertension; G93.89 Other specified disorders of brain; R47.81 Slurred speech; I25.10 Atherosclerotic heart disease of native coronary artery without angina pectoris; E78.5 Hyperlipidemia, unspecified; R73.03 Prediabetes; I69.331 Monoplegia of upper limb following cerebral infarction affecting right dominant side; Z87.891 Personal history of nicotine dependence; Z79.82 Long term (current) use of aspirin; Z79.02 Long term (current) use of antithrombotics/antiplatelets; Z95.5 Presence of coronary angioplasty implant and graft